=== PATIENT | female | born 1945 | race Caucasian/White ===

== ENCOUNTER → 2018-05-20 15:10 | Outpatient (CLI) | payer MEDICARE, OTHER, SELFPAY ==
--- NOTE | 2018-05-20 15:14 | BI_ITS ---
MAMMOGRAPHY - BILATERAL SCREENING REASON FOR EXAM: Female, 73 years old. Routine annual screening examination. PERTINENT HISTORY: Non-contributory. Remote left breast biopsy. TECHNIQUE: Digital bilateral breast jigar (3D mammographic acquisition) in the CC and MLO projections. 2-D mediolateral oblique (MLO) and craniocaudad (CC) views of both breasts were obtained. CAD: Full Field Digital Mammography with Computer Added Detection was performed. COMPARISON: No comparison mammograms available at this time. If any prior films become available, an addendum to this report can be generated. FINDINGS: Breast Composition: The breasts are heterogeneously dense, which may obscure small masses. There is a densely calcified 1.3 cm x 0.9 cm nodule in the deep retroareolar region of the left breast suggestive of a calcified fibroadenoma. No other significant abnormalities are identified. BI/SCREENING MAMM (CAD), BILAT IMPRESSION: Negative screening mammogram. Yearly followup mammogram recommended. (A) ASSESSMENT CATEGORY: BIRADS Category 2: Benign. A letter regarding these results will be sent to the patient by the facility within 30 days. Approximately 10% of breast cancers are not detected by mammography. A normal mammogram should not delay biopsy of a clinically suspicious abnormality. [id number] Electronically Signed: Fantasma Gentile MD at 8:11 EDT Tel [phone], Service support ,
--- NOTE | 2018-05-20 15:24 | BD_ITS ---
STUDY: DUAL ENERGY X-RAY ABSORPTIOMETRY / DXA REASON FOR EXAM: Female, 73 years old. Early menopause. Loss of height. History of compression fracture. TECHNIQUE: Bone Mineral Density (BMD) measurements of lumbar spine and bilateral hips were obtained. COMPARISON: None. FINDINGS: Lumbar Spine (L1-L4): g/cm2 (0.809) / T-score (-3.3) / Z-score (-1.6) Findings are suggestive of osteoporosis with a high fracture risk. Increased thoracic kyphosis. 50% loss of height of the L1 vertebrae. Left Femur Total: g/cm2 (0.823) / T-score (-1.5) / Z-score (0.1) Left Femoral Neck: g/cm2 (0.746) / T-score (-2.1) / Z-score (-0.4) Right Femur Total: g/cm2 (0.804) / T-score (-1.6) / Z-score (-0.1) Right Femoral Neck: g/cm2 (0.786) / T-score (-1.8) / Z-score (-0.1) BD/Dexa Bone Density Study IMPRESSION: The patient is considered osteoporotic as outlined below according to [employer] (WHO) criteria with a high fracture risk. Reference Information: The T-score is the number of standard deviations above or below the standard which is normal for young adults at their peak bone mineral density. The World Health Organization (WHO) interprets the T-scores as follows: Above -1 Normal bone density Between -1 and -2.5 Osteopenia Equal to / or below -2.5 Osteoporosis As a practical clinical guideline, osteopenia may be graded as follows: Mild -1 through -1.5 Moderate -1.6 through -2.0 Severe -2.1 through -2.4 The Z-score is the number of standard deviations above or below age-matched controls. A Z-score of less than -1.5 would be considered abnormal. References: 1. NIH Osteoporosis and Related Bone Diseases http://www.osteo.org 2. International Society for Clinical Densitometry http://www.iscd.org 3. National Osteoporosis Foundation http://www.nof.org Electronically Signed: Fantasma Gentile MD at 8:16 EDT Tel [phone], Service support ,
== END ==
PROVIDERS: Family Provider Family Medicine; PCP Family Medicine; Visit Provider Family Medicine
DX: Z12.31 Encounter for screening mammogram for malignant neoplasm of breast (principal); M81.0 Age-related osteoporosis without current pathological fracture
CPT/HCPCS: 77063; 77067; 77080

== ENCOUNTER → 2018-06-24 10:03 | Outpatient (CLI) | payer MEDICARE, OTHER, SELFPAY ==
[2018-06-24 12:04] LABS: Absolute Lymphocyte Count 1.04 X10^3/ul (0.83-4.51); Absolute Neutrophil Count 2.9 X10^3/uL (2.0-7.7); Basophil# 0.01 X10^3/uL; Basophil% 0.2 % (0-1); Eosinophil# 0.09 X10^3/uL; Eosinophils% 2.1 % (0-5); Hematocrit 39.5 % (37-47); Hemoglobin 12.9 g/dl (12.0-15.0); Lymphocyte # 1.04 X10^3/ul (4.0); Mean Corp Hgb Conc 32.7 g/gl (32-36); Mean Corpuscular Hgb 30.6 pg (27.0-32.0); Mean Corpuscular Volume 93.6 fL (81-99); Mean Platelet Vol. 8.8 fl (6.2-12.0); Monocyte# 0.28 X10^3/uL; Monocyte% 6.5 % (0-10); Platelet Count 211 K/mm3 (150-450); RBC Distribution Width CV 13.1 % (11.6-14.6); RBC Distribution Width SD 43.4 fl (35.1-43.9); Red Blood Count 4.22 M/mm3 (4.2-5.4); White Blood Count 4.3 K/mm3 (4.4-11.0)
[2018-06-24 12:09] LABS: POSITIVE COUNT NO; POSITIVE DIFFERENTIAL NO; POSITIVE MORPHOLOGY NO
[2018-06-24 12:34] LABS: AST(SGOT) 17 U/L (15-37); Alanine Aminotransfer ALT/SGPT 14 U/L (13-56); Albumin, Serum 3.6 g/dL (3.2-5.0); Alkaline Phosphatase 60 U/L (45-117); Anion Gap 8 (5-15); BUN 13 mg/dL (7-18); BUN/Creat Ratio 17.2 RATIO (10-20); Calcium,Total 8.6 mg/dL (8.5-10.1); Chloride 106 mmol/L (98-107); Creatinine, Serum 0.76 mg/dL (0.55-1.02); EST Glomerular Filtration Rate 80 mL/min (>60); Est Glom Filt Rate - Afr Amer 97 mL/min (>60); Globulin 3.5 g/dL (2.2-4.2); Glucose 89 mg/dL (74-106); Phosphorus 3.5 mg/dL (2.5-4.9); Potassium 3.7 mmol/L (3.5-5.1); Protein, Total 7.1 g/dL (6.4-8.2); Sodium Level 142 mmol/L (136-145); Thyroid Stim Hormone (TSH) 1.34 uIU/mL (0.358-3.74)
[2018-06-25 09:08] LABS: Vitamin B12 374 pg/mL (211-911)
[2018-06-28 11:09] LABS: Vitamin B1, Thiamine 140.4 nmol/L (66.5-200.0)
== END ==
LOC: MFPLAB 10:04 → MTRAD 10:27
PROVIDERS: Family Provider Family Medicine; PCP Family Medicine; Visit Provider Family Medicine
DX: R07.81 Pleurodynia (principal); M81.0 Age-related osteoporosis without current pathological fracture; E55.9 Vitamin D deficiency, unspecified; E53.9 Vitamin B deficiency, unspecified
CPT/HCPCS: 36415; 71110; 80053; 82306; 82607; 84100; 84425; 84443; 85025

== ENCOUNTER → 2018-08-26 16:58 | Outpatient (CLI) | payer MEDICARE, OTHER, SELFPAY | PROVIDERS: Family Provider Family Medicine; PCP Family Medicine; Referring Provider Obstetrics & Gynecology; Visit Provider Obstetrics & Gynecology | DX: R30.0 Dysuria (principal) | CPT/HCPCS: 87077; 87086; 87088 ==

== ENCOUNTER → 2018-09-28 10:36 | Outpatient (CLI) | payer MEDICARE, OTHER, SELFPAY ==
[2018-09-28 12:58] LABS: ALB/GLOB Ratio 1.2 RATIO (0.9-2.4); AST(SGOT) 16 U/L (15-37); Alanine Aminotransfer ALT/SGPT 15 U/L (13-56); Alkaline Phosphatase 63 U/L (45-117); Anion Gap 4 (5-15); BUN 17 mg/dL (7-18); BUN/Creat Ratio 20.3 RATIO (10-20); Calcium,Total 8.8 mg/dL (8.5-10.1); Chloride 105 mmol/L (98-107); Creatinine, Serum 0.84 mg/dL (0.55-1.02); EST Glomerular Filtration Rate 71 mL/min (>60); Est Glom Filt Rate - Afr Amer 86 mL/min (>60); Globulin 3.4 g/dL (2.2-4.2); Glucose 90 mg/dL (74-106); Phosphorus 3.3 mg/dL (2.5-4.9); Potassium 3.9 mmol/L (3.5-5.1); Protein, Total 7.4 g/dL (6.4-8.2); Sodium Level 140 mmol/L (136-145)
[2018-09-28 13:07] LABS: Vitamin B12 510 pg/mL (211-911); Vitamin D,25 Hydroxy 39.1 ng/mL (29.95-100.01)
--- OUTSIDE RECORDS SUMMARY | 2018-11-10 02:21 | XMS RPT_ITS ---
:1945 Author Organization [place] Support Name Relationship Address Phone PAMELA VIKKI Unavailable [id number] + [place] [address] THEODORE LEGER Unavailable [address] + [address] [place] [address] SYCRUNNRS Unavailable [address] + [address] [place] [address] VIKKI SANTIAGO Unavailable [address] + [place] [address] THEODORE LEGER Unavailable [address] + [address] [place] [address] SYCRUNNRS Unavailable [address] + [address] [place] [address] VIKKI SANTIAGO Unavailable [address] + [place] [address] THEODORE LEGER Unavailable [address] + [address] [place] [address] SYCRUNNRS Unavailable [address] + [address] [place] [address] VIKKI SANTIAGO Unavailable [address] + [place] [address] THEODORE LEGER Unavailable [address] + [address] [place] [address] SYCRUNNRS Unavailable [address] + [address] [place] [address] VIKKI SANTIAGO Unavailable [address] + [place] [address] THEODORE LEGER Unavailable [address] + [address] [place] [address] SYCRUNNRS Unavailable [address] + [address] [place] [address] VIKKI SANTIAGO Unavailable [address] + [place] [address] PROVIDER SERVICES Un[address] + [place] [address] VIKKI SANTIAGO Unavailable [address] + [place] [address] PROVIDER SERVICES Un[address] + [place] [address] VIKKI SANTIAGO Unavailable [address] + [place] [address] PROVIDER SERVICES Un[address] + [place] [address] PROVIDER SERVICES Unavailable [address] + [place] [address] VIKKI SANTIAGO Unavailable [address] + [place] [address] MALICK LEGER Unavailable [address] + [place] [address] PROVIDER SERVICES Un[address] + [place] [address] VIKKI SANTIAGO Unavailable [address] + [place], [place] [address]MALICK FINK Unavailable [address] + [place] [address] PROVIDER SERVICES Un[address] + [place] [address] VIKKI SANTIAGO Unavailable [address] + [place] [address] MALICK LEGER Unavailable [address] + [place] [address] PROVIDER SERVICES Un[address] + [place] [address] VIKKI SANTIAGO Unavailable [address] + [place], [place] [address]MALICK FINK Unavailable [address] + [place] [address] [address] + [place] [address] Care Team Providers Name Role Phone Kurt Garcia Attending Unavailable Schinner, Alfredo E Referring Unavailable Tasha, Pat Attending Unavailable Schinner, Alfredo E Referring Unavailable Schinner, Alfredo E Attending Unavailable Schinner, Alfredo E Referring Unavailable Schinner, Alfredo E Primary Care Unavailable Schinner, Alfredo E Attending Unavailable Schinner, Alfredo E Primary Care Unavailable Schinner, Alfredo E Referring Unavailable Marcanthony, Tiera Attending Unavailable Schinner, Alfredo E Referring Unavailable Marcanthony, Tiera Attending Unavailable Marcanthony, Tiera Referring Unavailable Schinner, Alfredo E Primary Care Unavailable Tasha, Pat Attending Unavailable Schinner, Alfredo E Referring Unavailable Schinner, Alfredo E Attending Unavailable Schinner, Alfredo E Primary Care Unavailable [place], Kurt Attending Unavailable Schinner, Alfredo E Referring Unavailable Jose, Kurt Attending Unavailable Schinner, Alfredo E Primary Care Unavailable Schinner, Alfredo E Referring Unavailable Tasha, Pat Attending Unavailable Schinner, Alfredo E Referring Unavailable Jose, Kurt Attending Unavailable PROBLEMS PROBLEMS DATE TYPE CONDITION / CODE ATTENDING STATUS SOURCE 10/14/2018 Unknown K64.9 - Kurt Garcia Active [facility] hemorrhoids [facility] Hospital K64.9(ICD-10) Repository 10/07/2018 Unknown Z12.11 - Encounter Kurt Garcia Active [place] for screening for Community malignant neoplasm Hospital colon / Repository Z12.11(ICD-10) 10/07/2018 Unknown K64.8 - Other Kurt Garcia Active [place] hemorrhoids / Community K64.8(ICD-10) Hospital Repository 08/26/2018 Unknown R30.0 - Dysuria / Marcanthony, Active [place] R30.0(ICD-10) [facility] Repository 06/30/2018 Unknown R07.81 - Alfredo Dodd Active [place] Pleurodynia / E Community R07.81(ICD-10) Hospital Repository 05/20/2018 Unknown M81.0 - Alfredo Dodd Active [place] Age-related [facility] osteoporosis Hospital without current Repository pathological fracture / M81.0(ICD-10) 05/20/2018 Unknown Z12.31 - Encounter Alfredo Dodd [facility] for screening [facility] mammogram for Hospital malignant neoplasm Repository of breast / Z12.31(ICD-10) PROCEDURES PROCEDURES No Procedure Records FoundRESULTS RESULTS MIXING 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 [place] [address] OFFICE VISIT Date of Service: 10/14/18 MR#: [id number] Acct: [id number] Name: CHEYANNE LEGER Rep #: [id number] : 1945 Provider: DARRIN Cordova Age/Sex: 73/F [place] [facility] [place] Signed Intake Vital Signs10/14/18 Body Mass Index (BMI) 23.3 10/14/18 Height 5 ft 1.75 in 10/14/18 Weight: 134 lb 8 oz 10/14/18 Body Mass Index (BMI) 24.7 10/14/18 Blood Pressure 114/68 Intake Visit Reasons: pessary, abn discharge Is patient in pain?: Yes Allergies Penicillins [PCN] Allergy (Verified 10/14/18 13:31) Hives Medications ibuprofen 200 mg tablet 200 mg PO TID-QID PRN 09/30/18 [History Confirmed 10/14/18] aspirin 81 mg tablet,delayed release 81 mg PO DAILY 10/14/18 [History Confirmed 10/14/18] cholecalciferol (vitamin D3) 1,000 unit capsule 3,000 unit PO DAILY cap 10/14/18 [History Confirmed 10/14/18] multivitamin tablet 1 tab PO DAILY 10/14/18 [History Confirmed 10/14/18] Is last menstrual period known: No Post menopausal: No Patient : No : No PFSH Medical History Hemorrhoids (Acute) Surgical History H/O tubal ligation (Acute) History of tonsillectomy (Acute) S/P colonoscopy (Acute 10/06/18) Family History Father Myocardial infarction Social History Smoking Status: Never smoker alcohol intake: never substance use type: does not use caffeine: Yes what type of physical activity do you participate in: walking do you feel safe at home: Yes additional social history: [place]- 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 Was in for maintenance of pessary on 10/11 and states started with increased green discharge yesterday. No odor,no discomfort. Pregancy History 2 Elective abortions Hx Para 2 Spontaneous abortions Past Pregnancies Del. DatName GA/WeeksOutcome Route Bt WeigInfant GLabor LgAnesthesDel LocaProviderFOB e ht en ia tn Unknown 1965 And y Unknown 1969 ie Exam External Female Exam: normal external appearance Other: Pessary removed. Small amount mucoid discharge. Pessary cleaned and given to patient. No vaginal lesions or excoriations noted. Assessment AND Plan Problems 1. Vaginal discharge N89.8 Plan Leave pessary out X 1 week Use trimosan gel every other night RTO 1 week Coding Level of Care Code Off vis,est,level 3 Diagnoses Vaginal discharge N89.8 10/14/18 1349 <Electronically signed by Pat DICKEY> Date Pat DICKEY Cosigner Signature: Date (if applicable) CC: SURGERY VISIT REPORT Observed: 10/12/2018 Status: F Source: [place] 10:00 AM [facility] REPOSITORY [facility] [address] [place] [address] [address] [place] [address] OFFICE VISIT Date of Service: 10/12/18 MR#: [id number] Acct: [id number] Name: CHEYANNE LEGER Rep #: [id number] : 1945 Provider: Kurt Garcia MD Age/Sex: 73/F Location: [facility] Status: Signed Intake Intake Visit Reasons: F/U C-SCOPE 10/06/18 AND TO DISCUSS Hemorrhoidectomy Chief Complaint: Pessary Check Event Coordinator Required: No Is patient in pain?: No Allergies Penicillins [PCN] Allergy (Verified 10/12/18 09:30) Hives Medications ibuprofen 200 mg tablet 200 mg PO TID-QID PRN 09/30/18 [History Confirmed 10/12/18] Subjective Details: Patient status post a colonoscopy completed on 10/06/2018. This was done for a screening colonoscopy. Patient was noted to have some nonbleeding internal and external hemorrhoids which were found during retroflexion. Hemorrhoids were moderate to medium in size was also noted to have multiple small mouth diverticuli found within the sigmoid and descending colon. I recommended that she have another colonoscopy in 10 years. Patient has not been complaining of any anal pain nor has she been complaining of any rectal Objective Details: Abdomen is soft and nontender Assessment AND Plan Problems 1. Hemorrhoids K64.9 Plan At the present time I do not think there is any surgical indications to do anything to these hemorrhoids. She has a completely normal rectal exam and unless she is having any bleeding I do not think that we need to give her any Anusol HC suppositories. She can follow-up with me on a as needed basis. It is recommended that she have a repeat colonoscopy in 10 years. Coding Level of Care Code Off vis,est,level 2 Diagnoses Hemorrhoids K64.9 10/12/18 1000 <Electronically signed by Kurt Garcia MD> Date Kurt Garcia MD Cosigner Signature: Date (if applicable) CC: Alfredo Dodd MD MIXING SUPERVISOR OFFICE VISIT Observed: 10/11/2018 Status: F Source: [place] REPORT 12:54 PM [facility] REPOSITORY [facility] [address] [place] [address] OFFICE VISIT Date of Service: 10/11/18 MR#: [id number] Acct: [id number] Name: CHEYANNE LEGER Rep #: [id number] : 1945 Provider: DARRIN Cordova Age/Sex: 73/F Location[place] [facility] Status: Signed Intake Vital Signs10/11/18 Body Mass Index (BMI) 23.3 10/11/18 Height 5 ft 1.75 in 10/11/18 Weight: 134 lb 10/11/18 Body Mass Index (BMI) 24.7 10/11/18 Blood Pressure 150/72 H Intake Visit Reasons: FOLLOW UP Chief Complaint: Pessary Check Event Coordinator Required: No Is patient in pain?: No Allergies Penicillins [PCN] Allergy (Verified 10/11/18 11:44) Hives Medications ibuprofen 200 mg tablet 200 mg PO TID-QID PRN 09/30/18 [History Confirmed 10/05/18] Is last menstrual period known: No Post menopausal: Yes Patient : No : No [facility] Medical History Hemorrhoids (Acute) Surgical History H/O tubal ligation (Acute) History of tonsillectomy (Acute) S/P colonoscopy (Acute) Family History Father Myocardial infarction Social History Smoking Status: Never smoker alcohol intake: never substance use type: does not use caffeine: Yes what type of physical activity do you participate in: walking do you feel safe at home: Yes additional social history: [place]- 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 Notes that sometimes feels like pessary drops down when urinating, having BM but never comes out. Feels occurs more frequently when uses trimosan gel. Denies bleeding, unusual discharge. Pregancy History 2 Elective abortions Hx Para 2 Spontaneous abortions Past Pregnancies Del. DatName GA/WeeksOutcome [facility] LocaProviderFOB e ht en ia tn Unknown 1965 And y Unknown 1969 ie Exam Const General: cooperative, no acute distress Nutritional Appearance: well nourished Orientation: oriented x3 Other: Ring pessary with support is well placed prior to removal. It was removed and cleaned and easily replaced with trimosan gel. NO excoriations or lesions noted. This pessary does fit well for patient. Assessment AND Plan Problems 1. Cystocele with rectocele N81.10; N81.6 size 2 ring with support placed 2. Pessary maintenance Z46.89 Plan May try just using trimosan gel once a week Call if pessary comes out or if discomfort, S AND S infection or bleeding occurs RTO 6 weeks Coding Level of Care Code Off vis,est,level 3 Diagnoses Cystocele with rectocele N81.10; N81.6 Pessary maintenance Z46.89 10/11/18 1254 <Electronically signed by Pat DICKEY> Date Pat DICKEY Cosigner Signature: Date (if applicable) CC: OPERATIVE REPORT - Observed: 10/06/2018 Status: F Source: [place] ENDOSCOPY 10:28 AM [facility] REPOSITORY [facility] Medical Records Department [address] [facility] [place] [address] Operative Report - Endoscopy MR#: [id number] Acct: [id number] Name: CHEYANNE LEGER Rep #: [id number] : 1945 73 From: Kurt Garcia MD PCP: Alfredo Dodd MD Status: [place] [facility] [place] Patient Name: Cheyanne Leger Procedure Date: 10/06/2018 10:04 AM Date of : 1945 Age: 73 Procedure: Colonoscopy Indications: Screening for colorectal malignant neoplasm Providers: Kurt Garcia MD Referring MD: Alfredo Dodd Medicines: See the Anesthesia note for documentation of the administered medications Patient Profile: This is a 73 year old female. Refer to note in patient chart for documentation of history and physical. Last Colonoscopy: none. The patient's first colonoscopy is today. Complications: No immediate complications. Procedure: Pre-Anesthesia Assessment: - Prior to the procedure, a History and Physical was performed, and patient medications and allergies were reviewed. The patient's tolerance of previous anesthesia was also reviewed. The risks and benefits of the procedure and the sedation options and risks were discussed with the patient. All questions were answered, and informed consent was obtained. Prior Anticoagulants: The patient has taken no previous anticoagulant or antiplatelet agents. ASA Grade Assessment: II - A patient with mild systemic disease. After reviewing the risks and benefits, the patient was deemed in satisfactory condition to undergo the procedure. After I obtained informed consent, the scope was passed under direct vision. Throughout the procedure, the patient's blood pressure, pulse, and oxygen saturations were monitored continuously. The Colonoscope was introduced through the anus and advanced to the cecum, identified by appendiceal orifice and ileocecal valve. The colonoscopy was performed without difficulty. The patient tolerated the procedure well. The quality of the bowel preparation was good. Scope In: 10:13:39 AM Scope Withdrawal Time 0 hours 6 minutes 9 seconds Scope Out: 10:24:36 AM Total Procedure Duration Time 0 hours 10 minutes 57 seconds Findings: Non-bleeding external and internal hemorrhoids were found during retroflexion. The hemorrhoids were moderate and medium-sized. Multiple small-mouthed diverticula were found in the sigmoid colon and descending colon. The exam was otherwise without abnormality. Impression: - Non-bleeding external and internal hemorrhoids. - Diverticulosis in the sigmoid colon and in the descending colon. - The examination was otherwise normal. - No specimens collected. Recommendation: - Discharge patient to home. - Resume previous diet. - Continue present medications. - Repeat colonoscopy in 10 years for screening purposes. - Return to my office in 1 week. Procedure Code(s): --- Professional --- G0121, Colorectal cancer screening; colonoscopy on individual not meeting criteria for high risk Diagnosis Code(s): --- Professional --- Z12.11, Encounter for screening for malignant neoplasm of colon K64.8, Other hemorrhoids K57.30, Diverticulosis of large intestine without perforation or abscess without bleeding CPT copyright 2017 [employer]. All rights reserved. The codes documented in this report are preliminary and upon frame sample and pattern supervisor review may be revised to meet current compliance requirements. MD Kurt Chaudhry MD 10/06/2018 10:28:22 AM This report has been signed electronically. Number of Addenda: 0 Note Initiated On: 10/06/2018 10:04 AM 10/06/18 1028 Date Kurt Garcia MD Cosigner Signature: Date (if indicated) CC: Kurt Garcia MD; Alfredo Dodd MD Date Dictated: 10/06/18 1004 Date Transcribed: Apparatus Engineering Technologist: JOSEPH Signed SURGERY VISIT REPORT Observed: 09/30/2018 Status: F Source: [place] 12:57 PM [facility] REPOSITORY [facility] [address] [place] [address] [address] [place] [address] OFFICE VISIT Date of Service: 09/30/18 MR#: [id number] Acct: [id number] Name: CHEYANNE LEGER Rep #: [id number] : 1945 Provider: Kurt Garcia MD Age/Sex: 73/F Location: [facility] Status: Signed Intake Vital Signs09/30/18 Height 5 ft 1 in 09/30/18 Weight: 135 lb Intake Visit Reasons: SCREENING C-SCOPE AND HEMORRHOID Chief Complaint: pessary check Event Coordinator Required: No Is patient in pain?: No Allergies Penicillins [PCN] Allergy (Verified 09/30/18 10:49) Hives Medications ibuprofen 200 mg tablet 200 mg PO TID-QID PRN 09/30/18 [History Confirmed 09/30/18] PFSH Medical History Hemorrhoids (Acute) Surgical History H/O tubal ligation (Acute) History of tonsillectomy (Acute) Family History Father Myocardial infarction Social History Smoking Status: Never smoker alcohol intake: never substance use type: does not use caffeine: Yes what type of physical activity do you participate in: walking do you feel safe at home: Yes additional social history: [place]- 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 Patient states that she has a small hemorrhoid that seems to have gotten a little larger over the years. She has not noticed any bleeding from it. She can never recall having any anal surgery in the past. She has never had a screening colonoscopy. She does notice that it makes wiping a little difficult at times. And occasionally she thinks that she may have some leakage. ROS General General: Yes weight change; no appetite, fatigue, colon cancer, breast cancer or weakness HEENT HEENT: No difficulty swallowing, eye injury, eye surgery, swollen glands or hoarseness Endo Endocrine: No thyroid disease, diabetes mellitus, thyroid cancer, Hair loss, heat intolerance or cold intolerance Skin Skin: No rash or changing moles Breast Breast: No left breast lump, right breast lump, nipple discharge, breast pain, abnormal mammogram, abnormal US or breast enlargement Musc Musculoskeletal: Yes back problems; no arthritis, rheumatoid arthritis, gout or joint pain Cardio Cardiovascular: No murmur, pacemaker, heart disease, atrial fibrillation, high blood pressure, heart attack, heart stent, palpitations, shortness of breat with exertion or chest pain Psych Psychiatric: No depression, anxiety or hearing voices Resp Respiratory: No shortness of breath, No sleep apnea, No cough, No COPD, No asthma, No emphysema, No wheezing Gastro Gastrointestinal: No abdominal pain, No nausea or vomiting, No diarrhea, No constipation, No blood in stool, No acid reflux, Yes hemorrhoids, No ulcers, No gallbladder problem, No black,tarry stools Jabari Hematologic: No blood thinners, No blood disorders, No bleeding, No anemia, No blood clots Neuro Neurologic: No system reviewed and no additional complaints, except as docu, No as per HPI, No abnormal walking, No abnormal hearing, No abnormal movements, No abnormal speech, No behavioral changes, No burning sensations, No confusion, No seizure-like activity, No unsteadiness, No dizziness, No localized weakness, No frequent falls, No headache(s), No lack of coordination, No loss of vision, No memory loss, No numbness, No other visual disturbances, No radiating pain, No restless legs, No sensory deficit, No fainting, No tingling, No tremor(s), No weakness, No other Exam Const General: well developed, no acute distress, well hydrated Orientation: oriented to person, oriented to place, oriented to time [facility] Head: normocephalic, atraumatic Ears: external ears normal Mouth: moist mucous membranes Eyes Sclera: sclerae normal Pupils: normal by confrontation Neck Neck: no lymphadenopathy noted Neck mass: No Thyroid: symmetrical, thyroid normal Chest Chest palpation AND inspection: normal inspection of the chest Breast Palpation: No nipple discharge Resp Effort AND Inspection: normal respiratory effort Auscultation: clear to auscultation bilaterally Percussion: percussion normal Cardio Rate: regular rate Rhythm: regular rhythm Heart Sounds: no murmurs GI Palpation: soft, no masses, no hepatosplenomegaly, nontender Rectal Exam: other Other: Patient has a small internal and external hemorrhoidal component on the right lateral aspect. The rest of the anus appears normal. There is no signs of cellulitis. There is no signs of masses. She has normal tone. Extrem General: no clubbing, cyanosis or edema, normal to inspection Assessment AND Plan Problems 1. Screening for colon cancer Z12.11 Plan I have discussed the above with the patient. I have offered the patient colonoscopy for evaluation. I have explained the risks/benefits of the procedure and described the procedure. I have discussed the risks with the patient, including but not limited to: infection, bleeding, perforation of the GI tract requiring emergency surgery, inability to complete the procedure, injury to any internal organs, complications of anesthesia, etc. - the patient understands and agrees to proceed. I have answered all the patient's questions to the patient's satisfaction and the patient has no further questions. The patient has been given instructions for the colon cleansing preparation. I do not think there is anything we need to do for this hemorrhoid. It is entirely without symptomatology. I do not think any surgical intervention is needed at this time. She however does need to have a screening colonoscopy. Coding Level of Care Code Off vis,new,level 3 Diagnoses Screening for colon cancer Z12.11 09/30/18 1257 <Electronically signed by Kurt Garcia MD> Date Kurt Garcia MD Cosigner Signature: Date (if applicable) CC: Alfredo Dodd MD COMPREHENSIVE METABOLIC Collected: 09/28/2018 Status: F Source: [place] PROFIL 10:37 AM [facility] REPOSITORY TYPE CODE TESTS RESULT OUT OF RANGE REFERENCE UNITS LAB L501.0100 74-106 mg/dL Normal GLU 90 Result Comment: Please note revised GLUCOSE reference range effective 2017. LAB L501.1000 7-18 mg/dL Normal BUN 17 LAB L501.1100 0.55-1.02 mg/dL Normal CREAT,SERUM 0.84 Result Comment: The validity of the calculated GFR AND GFRAA in patients over 70 years has not been determined. Clinical correlation is essential. LAB L501.1110 >60 mL/min Normal EST GFR 71 Result Comment: Non- GFR Calc LAB L501.1115 >60 mL/min Normal EST GFR - AA 86 Result Comment: GFR Calc LAB L501.1300 10-20 RATIO High BUN/CRE 20.3 LAB L501.1500 6.4-8.2 g/dL T Normal PROT 7.4 LAB L501.1800 3.2-5.0 g/dL Normal ALB 4.0 LAB L501.1950 2.2-4.2 g/dL Normal GLOB 3.4 LAB L501.2000 0.9-2.4 RATIO Normal A/G 1.2 LAB L501.2200 8.5-10.1 mg/dL CA Normal 8.8 LAB L501.4100 15-37 U/L Normal AST 16 LAB L501.4305 45-117 U/L Normal ALK P 63 LAB L501.4405 13-56 U/L Normal ALT 15 LAB L501.4600 0.20-1.00 mg/dL T Normal BILI 0.70 LAB L501.5300 136-145 mmol/L NA Normal 140 LAB L501.5600 3.5-5.1 mmol/L K Normal 3.9 LAB L501.5900 98-107 mmol/L CL Normal 105 LAB L501.6100 21.0-32.0 mmol/L Normal CO2 31.0 LAB L501.6200 5-15 Low GAP 4 Performed By: #### L500.4050, L501.2300, L503.0105, L506.1000 #### [facility] [address] [place], [address] PHOSPHORUS Collected: 09/28/2018 Status: F Source: [place] 10:37 AM [facility] REPOSITORY TYPE CODE TESTS RESULT OUT OF RANGE REFERENCE UNITS LAB L501.2300 2.5-4.9 mg/dL Normal PHOS 3.3 Performed By: #### L500.4050, L501.2300, L503.0105, L506.1000 #### [facility] [address] [place], [address] VITAMIN B12 Collected: 09/28/2018 Status: F Source: [place] 10:37 AM [facility] REPOSITORY TYPE CODE TESTS RESULT OUT OF RANGE REFERENCE UNITS LAB L503.0105 211-911 pg/mL Normal Vitamin B12 510 Performed By: #### L500.4050, L501.2300, L503.0105, L506.1000 #### [facility] [address] [place], [address] VITAMIN D,25 HYDROXY Collected: 09/28/2018 Status: F Source: [place] 10:37 AM [facility] REPOSITORY TYPE CODE TESTS RESULT OUT OF RANGE REFERENCE UNITS LAB L506.1000 29.95-100.01 ng/mL Normal Vitamin D 39.1 25-OH Result Comment: Vitamin D 25(OH) Status Range Deficiency <20 ng/mL (50nmol/L) Insuffciency 20 - 30 ng/mL (50 - 75 nmol/L) Sufficiency 30 - 100 ng/mL (75 - 250 nmol/L) Toxicity >100 ng/mL (>250 nmol/L) Performed By: #### L500.4050, L501.2300, L503.0105, L506.1000 #### [facility] [address] [place], [address] MIXING SUPERVISOR OFFICE VISIT Observed: 09/10/2018 Status: F Source: [place] REPORT 10:21 AM [facility] REPOSITORY [facility] [address] [place] [address] OFFICE VISIT Date of Service: 09/10/18 MR#: [id number] Acct: [id number] Name: CHEYANNE LEGER Rep #: [id number] : 1945 Provider: DARRIN Cordova Age/Sex: 73/F [place] [facility] Signed Intake Vital Signs09/10/18 Height 5 ft 1.5 in 09/10/18 Weight: 136 lb 09/10/18 Body Mass Index (BMI) 25.2 09/10/18 Blood Pressure 150/80 H Intake Visit Reasons: can't find pessary Chief Complaint: pessary check Event Coordinator Required: No Is patient in pain?: No Allergies Penicillins [PCN] Allergy (Verified 09/10/18 10:04) Hives Medications nitrofurantoin monohydrate/macrocrystals 100 mg capsule 100 mg PO BID #14 cap 09/01/18 [Rx Confirmed 09/10/18] Is last menstrual period known: No Post menopausal: Yes Patient : No : No PFSH Surgical History H/O tubal ligation (Acute) History of tonsillectomy (Acute) Family History Father Myocardial infarction Social History Smoking Status: Never smoker alcohol intake: never substance use type: does not use caffeine: Yes what type of physical activity do you participate in: walking do you feel safe at home: Yes additional social history: Malick- 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 Unsure if ok to push up on it. Had initial pessary placed 08/[address] Quiros. Is otherwise doing well with it. No difficulty with bowel or bladder habits, no increased discharge, bleeding or discomfort Pregancy History 2 Elective abortions Hx Para 2 Spontaneous abortions Past Pregnancies Del. DatName GA/WeeksOutcome Route [facility] Lalita Rausch LgAnesthesDel LocaProviderFOB e ht en ia tn Unknown 1965 And y Unknown 1969 ie Exam Other: Upon exam the ring pessary with support is properly placed. Discussed may move down in vagina with valsalva and ok to push back up. Normal discharge noted. Assessment AND Plan Problems 1. Cystocele with rectocele N81.10; N81.6 size 2 ring with support placed 2. Vaginal pessary in situ Z92.89 Plan Reassured normal placement Has pessary check in 2 weeks Coding Level of Care Code Off vis,est,level 3 Diagnoses Cystocele with rectocele N81.10; N81.6 Vaginal pessary in situ Z92.89 09/10/18 1021 <Electronically signed by Pat DICKEY> Date Pat DICKEY Cosigner Signature: Date (if applicable) CC: MIXING SUPERVISOR OFFICE VISIT Observed: 08/29/2018 Status: F Source: [place] REPORT 2:05 AM [facility] [address] [place] [address] OFFICE VISIT Date of Service: 08/26/18 MR#: [id number] Acct: [id number] Name: ARSENCHEYANNE S Rep #: [id number] : 1945 Provider: Tiera Quiros MD Age/Sex: 73/F [place] [facility] [place]: Signed Intake Vital Signs08/26/18 Height 5 ft 2 in 08/26/18 Weight: 135 lb 8 oz 08/26/18 Body Mass Index (BMI) 24.7 08/26/18 Blood Pressure 138/86 H Intake Visit Reasons: BLADDER DROPPED? Chief Complaint: Bladder issues Event Coordinator Required: No Is patient in pain?: No Allergies Penicillins [PCN] Allergy (Verified 08/26/18 12:42) Hives Medications No Known/Unobtainable [No Known Home Medications] 01/14/16 [History Confirmed 01/14/16] Is last menstrual period known: No Post menopausal: Yes Patient : No : No PFSH Surgical History H/O tubal ligation (Acute) History of tonsillectomy (Acute) Family History Father Myocardial infarction Social History Smoking Status: Never smoker alcohol intake: never substance use type: does not use caffeine: Yes what type of physical activity do you participate in: walking do you feel safe at home: Yes additional social history: [place]ick- 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 she has noticed a vaginal bulge after doing some heavy lifting she felt a pop. she is having some vaginal pressure. she denies any urinary complaints. she feels pressure with lifting but denies any utis, she has some hemorrhoids , denies any splinting. Female Reproductive History Questions: Sexually active: No ( has prostate cancer) Pregancy History 2 Elective abortions Hx Para 2 Spontaneous abortions Past Pregnancies Del. DatName GA/WeeksOutcome Route [facility] LocaProviderFOB e ht en tn Unknown 1965 And y Unknown 1969 Jermaine ie ROS Const Constitutional: Reports system reviewed and no additional complaints, except as docu GI GI: Reports system reviewed and no additional complaints, except as docu : Reports as per HPI Exam Const General: cooperative, healthy appearing, comfortable, no acute distress, well developed Nutritional Appearance: average body habitus Orientation: alert HENMT Head: normal to inspection, normocephalic Neck Neck: normal visual inspection, trachea midline Thyroid: thyroid normal Resp Effort AND Inspection: normal respiratory effort GI Inspection: normal to inspection, non-distended Palpation: soft, no hepatosplenomegaly General: bladder normal to palpation External Female Exam: normal external appearance, normal appearance of the urethra Urethra: normal appearance of the urethra, normal palpation, no discharge Speculum Exam - Vagina: normal appearance of the vagina, normal vaginal discharge Speculum Exam - Cervix: normal appearance of the cervix, nontender Bimanual Exam- Vagina AND Uterus: bladder normal to palpation, No cervical tenderness, normal bimanual exam, uterine size normal, uterine shape normal, uterine mobility normal, uterine consistency normal, normal cervical palpation, uterus non-tender Bimanual Exam- Adnexa, other: pelvic support normal, rectocele, cystocele Pelvic Support: normal, rectocele, cystocele Skin General: no rashes or lesions noted Assessment AND Plan Problems 1. Cystocele with rectocele N81.10; N81.6 size 2 ring with support placed Plan peassary fitted and placed. fu in 4 weeks Orders Orders: Coding Level of Care Code Off vis,new,level 3 Diagnoses Cystocele with rectocele N81.10; N81.6 08/29/18 0205 <Electronically signed by Tiera Quiros MD> Date Tiera Quiros MD Cosigner Signature: Date (if applicable) CC: Observed: 08/26/2018 Status: F Source: [place] CULTURE, URINE 5:47 PM [facility] REPOSITORY Urine Culture Below infection level. ORGANISM 1: Streptococcus group B Thompson Count <1000 Performed By: #### M100.0650 #### [facility] [address] [place] [address]. [place], [address] RIBS BILAT 3V NO Observed: 06/24/2018 Status: F Source: [place] CXR 10:29 AM [facility] REPOSITORY [facility] Imaging Services [address] [place] [address] Ribs Bilat 3V No CXR MR#: [id number] Acct: [id number] Name: CHEYANNE LEGER Rep #: [id number] : 1945 F 73 From: Jessica Noonan MD PCP: Alfredo Dodd MD Status: REG CLI Study: Ribs Bilat 3V No CXR Date of Exam: 06/24/18 Exam# [id number] Ordering Dr: Alfredo Dodd MD STUDY: X-RAY - BILATERAL RIBS WITH CHEST REASON FOR EXAM: Female, 73 years old. Right anterior rib pain status post vacuuming TECHNIQUE - RIBS: 2 view(s) of the ribs. TECHNIQUE - CHEST: Single frontal view of the chest. COMPARISON: Report of MRI thoracic spine 02/12/2016. FINDINGS - RIBS : There is severe demineralization of the osseous structures which diminishes the diagnostic sensitivity of this examination, however there is no visualized rib fracture. FINDINGS - CHEST: There is hyperinflation of the lungs consistent with chronic obstructive lung disease (COPD). There is no demonstrated pleural abnormality. Normal size heart. Normal mediastinum and ricardo. Normal visualized pulmonary arteries. There is atherosclerotic calcification of the aortic arch with tortuosity. Severe generalized osteoporosis, loss of vertebral body height T12 and L1. Vertebra plana involving T9 vertebral body. There is no demonstrated abnormality of the visualized soft tissue structures of the upper abdomen. RAD/Ribs Bilat 3V No CXR IMPRESSION: RIBS: Severe generalized osteoporosis. No acute displaced rib fractures noted. CHEST: COPD, multilevel compression injuries of the thoracic spine, previously reported on thoracic spine 01/14 2016 involving the L1 and T12 vertebral body. The vertebra plana deformity of T9 was previously not mentioned. Electronically Signed: Jessica Noonan MD at 4:52 EDT , Service support , CC: Alfredo Dodd MD Apparatus Engineering Technologist: Signed CBC W/DIFF, AUTOMATED Collected: 06/24/2018 Status: F Source: [place] 10:04 AM [facility] REPOSITORY Order Comment: Order Date: 04/23/18 Order Info: 0184-1 - CBCD TYPE CODE TESTS RESULT OUT OF RANGE REFERENCE UNITS LAB L100.1000 4.4-11.0 K/mm3 Low WBC 4.3 LAB L100.1200 4.2-5.4 M/mm3 Normal RBC 4.22 LAB L100.1300 12.0-15.0 g/dl Normal HGB 12.9 LAB L100.1400 37-47 % Normal HCT 39.5 LAB L100.1500 81-99 fL Normal MCV 93.6 LAB L100.1600 27.0-32.0 pg Normal MCH 30.6 LAB L100.1700 32-36 g/gl Normal MCHC 32.7 LAB L100.1810 11.6-14.6 % Normal RDW CV 13.1 LAB L100.1820 35.1-43.9 fl Normal RDW SD 43.4 LAB L100.1900 150-450 K/mm3 Normal PLT 211 LAB L100.2000 6.2-12.0 fl Normal MPV 8.8 LAB L100.2100 47-70 % Normal NEUT% 67.0 LAB L100.2200 19-41 % Normal LY% 24.0 LAB L100.2300 0-10 % Normal MONO% 6.5 LAB L100.2400 0-5 % Normal EO% 2.1 LAB L100.2500 0-1 % Normal BASO% 0.2 LAB L100.2550 0.0-0.9 % Normal IM GRAN % 0.200 Result Comment: IG% - Immature Granulocytes (promyelocytes, myelocytes and metamyelocytes) > 1% indicates that a LEFT SHIFT is Present. LAB L100.2620 2.0-7.7 X10 3/uL Normal Absolute Neut 2.9 LAB L100.2720 0.83-4.51 X10 3/ul Normal Absolute Lymph 1.04 Performed By: #### L100.0100, L500.4050, L501.2300, L501.9520, L503.0105, L506.1000 #### [facility] [address] [place], [address] COMPREHENSIVE METABOLIC Collected: 06/24/2018 Status: F Source: [place] BARNEY 10:04 AM [facility] REPOSITORY Order Comment: Order Date: 04/23/18 Order Info: 0786-1 - CMP Order Info: 2777-1 - PHOS Order Info: 3016-3 - TSH Comments: B6 #5855 PLASMA FROZEN PFL TYPE CODE TESTS RESULT OUT OF RANGE REFERENCE UNITS LAB L501.0100 74-106 mg/dL Normal GLU 89 Result Comment: Please note revised GLUCOSE reference range effective 2017. LAB L501.1000 7-18 mg/dL Normal BUN 13 LAB L501.1100 0.55-1.02 mg/dL Normal CREAT,SERUM 0.76 Result Comment: The validity of the calculated GFR AND GFRAA in patients over 70 years has not been determined. Clinical correlation is essential. LAB L501.1110 >60 mL/min Normal EST GFR 80 Result Comment: Non- GFR Calc LAB L501.1115 >60 mL/min Normal EST GFR - AA 97 Result Comment: GFR Calc LAB L501.1300 10-20 RATIO Normal BUN/CRE 17.2 LAB L501.1500 6.4-8.2 g/dL T Normal PROT 7.1 LAB L501.1800 3.2-5.0 g/dL Normal ALB 3.6 LAB L501.1950 2.2-4.2 g/dL Normal GLOB 3.5 LAB L501.2000 0.9-2.4 RATIO Normal A/G 1.0 LAB L501.2200 8.5-10.1 mg/dL CA Normal 8.6 LAB L501.4100 15-37 U/L Normal AST 17 LAB L501.4305 45-117 U/L Normal ALK P 60 LAB L501.4405 13-56 U/L Normal ALT 14 LAB L501.4600 0.20-1.00 mg/dL T Normal BILI 1.00 LAB L501.5300 136-145 mmol/L NA Normal 142 LAB L501.5600 3.5-5.1 mmol/L K Normal 3.7 LAB L501.5900 98-107 mmol/L CL Normal 106 LAB L501.6100 21.0-32.0 mmol/L Normal CO2 28.0 LAB L501.6200 5-15 Normal GAP 8 Performed By: #### L100.0100, L500.4050, L501.2300, L501.9520, L503.0105, L506.1000 #### [facility] [address] [place], [place], [address] PHOSPHORUS Collected: 06/24/2018 Status: F Source: [place] 10:04 AM [facility] REPOSITORY Order Comment: Order Date: 04/23/18 Order Info: 0786-1 - CMP Order Info: [id number] - PHOS Order Info: 3016-3 - TSH Comments: B6 #4655 PLASMA FROZEN PFL TYPE CODE TESTS RESULT OUT OF RANGE REFERENCE UNITS LAB L501.2300 2.5-4.9 mg/dL Normal PHOS 3.5 Performed By: #### L100.0100, L500.4050, L501.2300, L501.9520, L503.0105, L506.1000 #### [facility] [place], [place], [address] THYROID STIM HORMONE Collected: 06/24/2018 Status: F Source: [place] (TSH) 10:04 AM [facility] REPOSITORY Order Comment: Order Date: 04/23/18 Order Info: [id number] - CMP Order Info: 2777- - PHOS Order Info: 3016-3 - TSH Comments: B6 #4655 PLASMA FROZEN PFL TYPE CODE TESTS RESULT OUT OF RANGE REFERENCE UNITS LAB L501.9520 0.358-3.74 uIU/mL Normal TSH 1.34 Performed By: #### L100.0100, L500.4050, L501.2300, L501.9520, L503.0105, L506.1000 #### [facility] [address] [place], [place], [address] VITAMIN B12 Collected: 06/24/2018 Status: F Source: [place] 10:04 AM [facility] REPOSITORY Order Comment: Order Date: 04/23/18 Order Info: 2132-9 - B12 Order Info: 09851-6 - VITD25 TYPE CODE TESTS RESULT OUT OF RANGE REFERENCE UNITS LAB L503.0105 211-911 pg/mL Normal Vitamin B12 374 Performed By: #### L100.0100, L500.4050, L501.2300, L501.9520, L503.0105, L506.1000 #### [facility] [address] [place], [place], [address] VITAMIN D,25 HYDROXY Collected: 06/24/2018 Status: F Source: [place] 10:04 AM [facility] REPOSITORY Order Comment: Order Date: 04/23/18 Order Info: 2132-9 - B12 Order Info: 07647-6 - VITD25 TYPE CODE TESTS RESULT OUT OF REFERENCE UNITS RANGE LAB L506.1000 29.95-100.01 ng/mL Low Vitamin D 29.0 25-OH Result Comment: Vitamin D 25(OH) Status Range Deficiency <20 ng/mL (50nmol/L) Insuffciency 20 - 30 ng/mL (50 - 75 nmol/L) Sufficiency 30 - 100 ng/mL (75 - 250 nmol/L) Toxicity >100 ng/mL (>250 nmol/L) Performed By: #### L100.0100, L500.4050, L501.2300, L501.9520, L503.0105, L506.1000 #### [facility] [address] [place], [address] VITAMIN B1, THIAMINE Collected: 06/24/2018 Status: F Source: [place] 10:04 [facility] [place] Order Comment: Comments: B6 #4655 PLASMA FROZEN PFL TYPE CODE TESTS RESULT OUT OF RANGE REFERENCE UNITS LAB L3300.8000 66.5-200.0 nmol/L Normal VIT B1 140.4 Result Comment: This test was developed and its performance characteristics determined by [facility]. It has not been cleared or approved by the Food and Drug Administration. Performed at: [address] [id number] Pattern Illustrator: Gaudencio Bennett MD, Phone: [phone] Performed By: #### L3300.8000 #### [facility] (refer to report for specific site) refer to report for address and phone number MISCELLANEOUS LAB Collected: 06/24/2018 Status: F Source: [place] PROCEDURE 10:04 AM [facility] REPOSITORY Order Comment: Comments: B6 #4655 PLASMA FROZEN PFL Test(s) Ordered: B6 #4655 PLASMA FROZEN PFL TYPE CODE TESTS RESULT OUT OF RANGE REFERENCE UNITS LAB L801.1541 Normal [facility] [place] Result Comment: TEST RESULT UNITS REFERENCE INTERVAL Vitamin B6, Plasma 7.3 ug/L 2.0 - 32.8 Disclaimer: This test was developed and its performance characteristics determined by [facility]. It has not been cleared or approved by the U.S. Food and Drug Administration. TESTING PERFORMED AT [facility]. ORIGINAL REPORT ON FILE IN LAB CONTAINS ADDITIONAL TEST SITE INFORMATION. Performed By: #### L801.1541 #### [facility] [address] [facility] [place], [address] SCREENING MAMM (CAD), Observed: 05/20/2018 Status: F Source: [facility] 3:15 PM [facility] REPOSITORY [facility] Imaging Services [address] [place] [address] SCREENING MAMM (CAD), [facility] MR#: [id number] Acct: [id number] Name: CHYEANNE LEGER Rep #: [id number] : 1945 F 73 From: Fantasma Gentile MD PCP: Alfredo Dodd MD Status: [facility] CL Study: SCREENING MAMM (CAD), BILAT Date of Exam: 05/20/18 Exam# [id number] Ordering Dr: Alfredo Dodd MD MAMMOGRAPHY - BILATERAL SCREENING REASON FOR EXAM: Female, 73 years old. Routine annual screening examination. PERTINENT HISTORY: Non-contributory. Remote left breast biopsy. TECHNIQUE: Digital bilateral breast jigar (3D mammographic acquisition) in the CC and MLO projections. 2-D mediolateral oblique (MLO) and craniocaudad (CC) views of both breasts were obtained. CAD: Full Field Digital Mammography with Computer Added Detection was performed. COMPARISON: No comparison mammograms available at this time. If any prior films become available, an addendum to this report can be generated. FINDINGS: Breast Composition: The breasts are heterogeneously dense, which may obscure small masses. There is a densely calcified 1.3 cm x 0.9 cm nodule in the deep retroareolar region of the left breast suggestive of a calcified fibroadenoma. No other significant abnormalities are identified. BI/SCREENING MAMM (CAD), BILAT IMPRESSION: Negative screening mammogram. Yearly followup mammogram recommended. (A) ASSESSMENT CATEGORY: BIRADS Category 2: Benign. A letter regarding these results will be sent to the patient by the facility within 30 days. Approximately 10% of breast cancers are not detected by mammography. A normal mammogram should not delay biopsy of a clinically suspicious abnormality. [id number] Electronically Signed: Fantasma Gentile MD at 8:11 EDT Tel [phone], Service support , CC: Alfredo Dodd MD Apparatus Engineering Technologist: Signed DEXA BONE DENSITY Observed: 05/20/2018 Status: F Source: [place] STUDY 3:15 PM [facility] REPOSITORY [facility] Imaging Services [address] [place] [address] Dexa Bone Density Study MR#: [id number] Acct: [id number] Name: CHEYANNE LEGER Rep #: [id number] : 1945 F 73 From: Fantasma Gentile MD PCP: Alfredo Dodd MD Status: [facility] Study: Dexa Bone Density Study Date of Exam: 05/20/18 Exam# [id number] Ordering Dr: Alfredo Dodd MD STUDY: DUAL ENERGY X-RAY ABSORPTIOMETRY / DXA REASON FOR EXAM: Female, 73 years old. Early menopause. Loss of height. History of compression fracture. TECHNIQUE: Bone Mineral Density (BMD) measurements of lumbar spine and bilateral hips were obtained. COMPARISON: None. FINDINGS: Lumbar Spine (L1-L4): g/cm2 (0.809) / T-score (-3.3) / Z-score (-1.6) Findings are suggestive of osteoporosis with a high fracture risk. Increased thoracic kyphosis. 50% loss of height of the L1 vertebrae. Left Femur Total: g/cm2 (0.823) / T-score (-1.5) / Z- score (0.1) Left Femoral Neck: g/cm2 (0.746) / T-score (-2.1) / Z- score (-0.4) Right Femur Total: g/cm2 (0.804) / T-score (-1.6) / Z- score (-0.1) Right Femoral Neck: g/cm2 (0.786) / T-score (-1.8) / Z-score (-0.1) BD/Dexa Bone Density Study IMPRESSION: The patient is considered osteoporotic as outlined below according to World [employer] Organization (WHO) criteria with a high fracture risk. Reference Information: The T-score is the number of standard deviations above or below the standard which is normal for young adults at their peak bone mineral density. The World Health Organization (WHO) interprets the T-scores as follows: Above -1 Normal bone density Between -1 and -2.5 Osteopenia Equal to / or below -2.5 Osteoporosis As a practical clinical guideline, osteopenia may be graded as follows: Mild -1 through -1.5 Moderate -1.6 through -2.0 Severe -2.1 through -2.4 The Z-score is the number of standard deviations above or below age-matched controls. A Z-score of less than -1.5 would be considered abnormal. References: 1. NIH Osteoporosis and Related Bone Diseases http://www.osteo.org 2. International Society for Clinical Densitometry http://www.iscd.org 3. National Osteoporosis Foundation http://www.nof.org Electronically Signed: Fantasma Gentile MD at 8:16 EDT Tel [phone], Service support , CC: Alfredo Dodd MD Apparatus Engineering Technologist: Signed ALLERGIES ALLERGIES DATE TYPE / CODE NAME / CODE REACTION SEVERITY SOURCE 10/14/2018 Drug Penicillins/ Hives Unknown [facility] Allergy/4160 [id number]([facility] [address]24(SNOMED XNORM) Repository CT) ENCOUNTERS ENCOUNTERS ADMIT/DISCHARGE ACCOUNT ADMITTING ENCOUNTER LOCATION SOURCE NUMBER CLASS 10/14/2018/ [id number] Ambulatory BMSBuilding:B [place] 8 7 [facility] Repository 10/12/2018/ [id number] Ambulatory BMSBuilding:B [place] 8 1 [facility] Repository 10/11/2018/ [id number] Ambulatory BMSBuilding:B [place] 8 9 [facility] Repository 10/06/2018/ [id number] [place]ulatory [place] [facility] ing:ENRoom: Repository AC11 10/06/2018/ [id number] Ambulatory BMSBuilding:B [place] 8 9 [place].[facility] Repository 09/30/2018/ [id number] Ambulatory BMSBuilding:B [place] 8 9 [facility] Repository 09/28/2018 [id number] [place] [facility] ing:MFPLAB Repository 09/10/2018/ [id number] Ambulatory BMSBuilding:B [place] 5 [facility] Repository 08/26/2018 [id number] Ambulatory [place] [facility] ing:LABSPEC Repository 08/26/2018/ [id number] Ambulatory BMSBuilding:B [place] 8 3 [facility] Repository 06/24/2018 [id number] [place] [facility] ing:MTRAD Repository 05/20/2018 [id number] [place] [facility] ing:OPBD Repository PAYERS PAYERS ENCOUNTER GUARANTOR PAYER SUBSCRIBER SOURCE 10/14/2018 CHEYANNE S Primary CHEYANNE S [place] [id number] CR Insurance:MEDICARE STANTONDOB: Community [address] Number: Repository [address]Oth: 330 [id number] [phone] () Date:2018-10-13 10/14/2018 Secondary CHEYANNE S [place] Insurance:AARPPolicy STANTONDOB: Community Number: [id number] [id number] Repository Date:1937-13-71[address], [place] [address]TQ: 10/14/2018 Tertiary NOT GIVENUNK [place] Insurance:SELF PAY [facility] Number: Effective Repository Date:2018-10-14 10/12/2018 CHEYANNE S Primary CHEYANNE S [place] [id number] CR Insurance:MEDICARE STANTONDOB: Community [address] [facility] [id number] Number: Repository [address]Eiw: 330 [id number] [phone] () Date:2018-10-07 10/12/2018 Secondary CHEYANNE S [place] Insurance:AARPPolicy STANTONDOB: Community Number: [id number] [id number] Repository Date:2233-96-[address], [place] [address]IW: 10/12/2018 Tertiary NOT GIVENUNK [place] Insurance:SELF PAY [facility] Number: Effective Repository Date:2018-10-08 10/11/2018 CHEYANNE S Primary CHEYANNE S [place] [id number] CR Insurance:MEDICARE STANTONDOB: Community [address] [facility] [id number] Number: Repository [address]Rfz: 330 [id number] [phone] () Date:2018-09-14 10/11/2018 Secondary CHEYANNE S [place] Insurance:AARPPolicy ARSENDOB: Community Number: [id number] [id number] Repository Date:6056-13-31[address], [place] [address]UC: 10/11/2018 Tertiary NOT GIVENUNK [place] Insurance:SELF PAY [facility] Effective Repository Date:2018-10-07 10/06/2018 CHEYANNE S Primary CHEYANNE S Alek [id number] CR Insurance:MEDICARE STANTONDOB: Community 6PO BOX PART A [facility] [id number] Number: Repository [id number]: 330 [id number] [phone] () Date:2018-09-30 10/06/2018 Secondary CHEYANNE S [place] Insurance:AARPPolicy ARSENDOB: Community Number: [id number] Hospital [id number] Repository Date:9158-35-01[address], [place] [address]DL: 10/06/2018 Tertiary NOT GIVENUNK Alek Insurance:SELF PAY [facility] Number: Effective Repository Date:2018-09-30 10/06/2018 CHEYANNE S Primary CHEYANNE S Alek [id number] CR Insurance:MEDICARE STANTONDOB: Community 6PO BOX PART A [facility] [id number] Number: Repository [id number]: 330 [id number] [phone] () Date:2018-09-30 10/06/2018 Secondary CHEYANNE S [place] Insurance:AARPPolicy ARSENDOB: Community Number: [id number] Hospital [id number] Repository Date:4195-29-94WT [facility] [place], [place] [address]RY: 10/06/2018 Tertiary NOT GIVENUNK [place] Insurance:SELF PAY [facility] Number: Effective Repository Date:2018-10-06 09/30/2018 CHEYANNE S Primary CHEYANNE S [place] [id number] CR Insurance:MEDICARE STANTONDOB: Community 6PO BOX PART A [facility] [id number] Number: Repository [id number]: 330 [id number] [phone] () Date:2018-09-28 09/30/2018 Secondary CHEYANNE S [place] Insurance:AARPPolicy STANTONDOB: Community Number: [id number] Hospital [id number] Repository Date:2508-46-24CV [facility] [id number], [place] [address]ON: 09/30/2018 Tertiary NOT GIVENUNK Alek Insurance:SELF PAY [facility] Number: Effective Repository Date:2018-09-28 09/28/2018 CHEYANNE S Primary CHEYANNE S Alek [id number] CR Insurance:MEDICARE MORRISDOB: Community 6PO BOX PART A [facility] [id number] Number: Repository [id number]: 330 [id number] [phone] () Date:2018-09-28 09/28/2018 Secondary CHEYANNE S [place] Insurance:AARPPolicy ARSENDOB: Community Number: [id number] Hospital [id number] Repository Date:1649-88-59PW [facility] [address], [place] [address]NO: 09/28/2018 Tertiary NOT GIVENUNK Alek Insurance:SELF PAY [facility] Number: Effective Repository Date:2018-09-28 09/10/2018 CHEYANNE S Primary CHEYANNE S Alek [id number] CR Insurance:MEDICARE STANTONDOB: Community 6PO BOX PART A [place] [id number] Number: Repository [id number]: [phone] [id number] [phone] () Date:2018-09-08 09/10/2018 Secondary CHEYANNE S Ale[place] Insurance:AARPPolicy BECCAB: Community Number: [id number] Hospital [id number] Repository Date:0655-09-48[address]TSVZNS, [place] [address]FY: 09/10/2018 Tertiary NOT GIVENUNK [place] Insurance:SELF PAY [facility] Number: Effective Repository Date:2018-09-10 08/26/2018 CHEYANNE S Primary CHEYANNE S [place] [id number] CR Insurance:MEDICARE STANTONDOB: Community 6PO BOX PART A [facility] [id number] Number: Repository [id number]: 330 [id number] [phone] () Date:2018-08-26 08/26/2018 Secondary CHEYANNE S [place] Insurance:AARWesley HUDSONB: Community Number: [id number] Hospital [id number] Repository Date:7542-10-84KV [address], [place] [address]PN: 08/26/2018 Tertiary NOT GIVENUNK [place] Insurance:SELF PAY [facility] Number: Effective Repository Date:2018-08-26 08/26/2018 CHEYANNE S Primary CHEYANNE S [place] [id number] CR Insurance:MEDICARE STANTONDOB: Community [address] PART A [facility] [id number] Number: Repository [address]Rwr: 330 [id number] [phone] () Date:2018-08-03 08/26/2018 Secondary CHEYANNE S [place] Insurance:AARPPolicy ARSENDOB: Community Number: [id number] Hospital [id number] Repository Date:9085-12-69ID [address]XWSLVU, [place] [address]PT: 08/26/2018 Tertiary NOT GIVENUNK [place] Insurance:SELF PAY [facility] Number: Effective Repository Date:2018-08-26 06/24/2018 CHEYANNE S Primary CHEYANNE S [place] [id number] CR Insurance:MEDICARE [facility] Community 6PO BOX PART A [facility] [id number] Number: Repository [id number]: [phone] [id number] [phone] () Date:2018-06-24 06/24/2018 Secondary CHEYANNE S [place] Insurance:ELYSEPPraymond HUDSONB: Community Number: [id number] Hospital [id number] Repository Date:3848-45-25GM [facility] [address]DHQHZHW, [place] [address]AX: 06/24/2018 Tertiary NOT GIVENUNK [place] Insurance:SELF PAY [facility] Number: Effective Repository Date:2018-06-24 05/20/2018 Cheyanne S Primary Cheyanne S Alek [id number] CR [facility] 6PO BOX PART A [facility] [id number] Number: Repository [id number]: 330 [id number] [phone] () Date:2018-04-23 05/20/2018 Secondary Cheyanne S [place] Insurance:Vimal HudsonB: Community Number: [id number] Hospital [id number] Repository Date:3868-08-17JQ [facility] [id number], [place] [address]FR: 05/20/2018 Tertiary NOT GIVENUNK [place] Insurance:SELF PAY [facility] Number: Effective Repository Date:2018-04-23
== END ==
PROVIDERS: Family Provider Family Medicine; PCP Family Medicine; Visit Provider Family Medicine
DX: M81.0 Age-related osteoporosis without current pathological fracture (principal); E53.9 Vitamin B deficiency, unspecified; E55.9 Vitamin D deficiency, unspecified
CPT/HCPCS: 36415; 80053; 82306; 82607; 84100

== ENCOUNTER 2018-10-06 08:21 | Day surgery (SDC) | payer MEDICARE, OTHER, SELFPAY ==
[2018-09-30 10:48] VITALS: BMI 25.4
[2018-10-06] VITALS (7 sets, daily range): BP systolic 92–120; BP diastolic 52–78; PULSE 68–85; RESP 16; TEMP 36.3–37.4; O2SAT 98–100; BMI 23.3
--- NOTE | 2018-10-06 10:28 | OP.ENDO_ITS ---
Patient Name: Cheyanne Harrington Procedure Date: 10/06/2018 10:04 AM Date of : 1945 Age: 73 Procedure: Colonoscopy Indications: Screening for colorectal malignant neoplasm Providers: Kurt Garcia MD Referring MD: Alfredo Dodd Medicines: See the Anesthesia note for documentation of the administered medications Patient Profile: This is a 73 year old female. Refer to note in patient chart for documentation of history and physical. Last Colonoscopy: none. The patient's first colonoscopy is today. Complications: No immediate complications. Procedure: Pre-Anesthesia Assessment: - Prior to the procedure, a History and Physical was performed, and patient medications and allergies were reviewed. The patient's tolerance of previous anesthesia was also reviewed. The risks and benefits of the procedure and the sedation options and risks were discussed with the patient. All questions were answered, and informed consent was obtained. Prior Anticoagulants: The patient has taken no previous anticoagulant or antiplatelet agents. ASA Grade Assessment: II - A patient with mild systemic disease. After reviewing the risks and benefits, the patient was deemed in satisfactory condition to undergo the procedure. After I obtained informed consent, the scope was passed under direct vision. Throughout the procedure, the patient's blood pressure, pulse, and oxygen saturations were monitored continuously. The Colonoscope was introduced through the anus and advanced to the cecum, identified by appendiceal orifice and ileocecal valve. The colonoscopy was performed without difficulty. The patient tolerated the procedure well. The quality of the bowel preparation was good. Scope In: 10:13:39 AM Scope Withdrawal Time 0 hours 6 minutes 9 seconds Scope Out: 10:24:36 AM Total Procedure Duration Time 0 hours 10 minutes 57 seconds Findings: Non-bleeding external and internal hemorrhoids were found during retroflexion. The hemorrhoids were moderate and medium-sized. Multiple small-mouthed diverticula were found in the sigmoid colon and descending colon. The exam was otherwise without abnormality. Impression: - Non-bleeding external and internal hemorrhoids. - Diverticulosis in the sigmoid colon and in the descending colon. - The examination was otherwise normal. - No specimens collected. Recommendation: - Discharge patient to home. - Resume previous diet. - Continue present medications. - Repeat colonoscopy in 10 years for screening purposes. - Return to my office in 1 week. Procedure Code(s): --- Professional --- G0121, Colorectal cancer screening; colonoscopy on individual not meeting criteria for high risk Diagnosis Code(s): --- Professional --- Z12.11, Encounter for screening for malignant neoplasm of colon K64.8, Other hemorrhoids K57.30, Diverticulosis of large intestine without perforation or abscess without bleeding CPT copyright 2017 [employer]. All rights reserved. The codes documented in this report are preliminary and upon psychology tech review may be revised to meet current compliance requirements. MD Kurt Chaudhry MD 10/06/2018 10:28:22 AM This report has been signed electronically. Number of Addenda: 0 Note Initiated On: 10/06/2018 10:04 AM
== END 2018-10-06 11:31 | disposition home or self-care (01) ==
LOC: EN 08:21 → AC 08:22
PROVIDERS: Family Provider Family Medicine; PCP Family Medicine; Referring Provider Family Medicine; Visit Provider Surgery
PROC: 0DJD8ZZ Inspection of Lower Intestinal Tract, Via Natural or Artificial Opening Endoscopic (ICD-10-PCS; CPT 45378; principal; 2018-10-06 09:55)
DX: Z12.11 Encounter for screening for malignant neoplasm of colon (principal); K57.30 Diverticulosis of large intestine without perforation or abscess without bleeding; K64.8 Other hemorrhoids; K64.4 Residual hemorrhoidal skin tags; Z78.0 Asymptomatic menopausal state
CPT/HCPCS: G0121; J7120

== ENCOUNTER → 2019-05-13 16:18 | Outpatient (CLI) | payer MEDICARE, OTHER, SELFPAY ==
[2019-05-13 08:59] VITALS: BMI 25.2
== END ==
PROVIDERS: Family Provider Family Medicine; PCP Family Medicine; Referring Provider Obstetrics & Gynecology; Visit Provider Obstetrics & Gynecology
DX: R30.0 Dysuria (principal)
CPT/HCPCS: 87086

== ENCOUNTER → 2019-08-30 15:22 | Outpatient (CLI) | payer MEDICARE, OTHER, SELFPAY ==
[2019-08-30 13:05] VITALS: BMI 25.4
== END ==
PROVIDERS: Family Provider Family Medicine; PCP Family Medicine; Visit Provider Nurse Practitioner Women's Health
DX: N89.8 Other specified noninflammatory disorders of vagina (principal)
CPT/HCPCS: 87070; 87205

== ENCOUNTER → 2019-10-20 13:07 | Outpatient (CLI) | payer MEDICARE, OTHER, SELFPAY ==
[2019-10-20 10:18] VITALS: BMI 24.5
== END ==
PROVIDERS: Family Provider Family Medicine; PCP Family Medicine; Referring Provider Nurse Practitioner Women's Health; Visit Provider Nurse Practitioner Women's Health
DX: Z46.89 Encounter for fitting and adjustment of other specified devices (principal)
CPT/HCPCS: 87070; 87205

== ENCOUNTER → 2019-11-11 11:36 | Outpatient (CLI) | payer MEDICARE, OTHER, SELFPAY ==
[2019-10-20 10:18] VITALS: BMI 24.5
--- NOTE | 2019-11-11 11:39 | BI_ITS ---
MAMMOGRAPHY - BILATERAL SCREENING REASON FOR EXAM: Female, 74 years old. Routine annual screening examination. PERTINENT HISTORY: Non-contributory. TECHNIQUE: Digital bilateral breast betsy (3D mammographic acquisition) in the CC and MLO projections. 2-D mediolateral oblique (MLO) and craniocaudad (CC) views of both breasts were obtained. CAD: Full Field Digital Mammography with Computer Added Detection was performed. COMPARISON: Comparison is made with prior study dated May 20, 2018. FINDINGS: Breast Composition: The breasts are heterogeneously dense, which may obscure small masses. There are no dominant masses or suspicious calcifications. Stable 1.3 cm x 1 cm ossified nodule in the upper lateral portion of the left breast in keeping with calcified fibroadenoma. No other significant abnormalities are identified. There has been no significant change since the prior study. BI/SCREEN MAMM (CAD) W/BETSY BILAT IMPRESSION: Stable bilateral screening mammogram. Yearly follow-up mammogram recommended. (A) ASSESSMENT CATEGORY: BIRADS Category 2: Benign. A letter regarding these results will be sent to the patient by the facility within 30 days. Approximately 10% of breast cancers are not detected by mammography. A normal mammogram should not delay biopsy of a clinically suspicious abnormality. [id number] Electronically Signed: Fantasma Gentile, at 12:44 EST , Service support ,
== END ==
PROVIDERS: Family Provider Family Medicine; PCP Family Medicine; Referring Provider Nurse Practitioner Women's Health; Visit Provider Nurse Practitioner Women's Health
DX: Z12.31 Encounter for screening mammogram for malignant neoplasm of breast (principal)
CPT/HCPCS: 77063; 77067

== ENCOUNTER → 2019-12-21 09:39 | Outpatient (CLI) | payer MEDICARE, OTHER, SELFPAY ==
[2019-10-20 10:18] VITALS: BMI 24.5
--- NOTE | 2019-12-21 09:43 | MRI_ITS ---
STUDY: MRI BRAIN WITHOUT CONTRAST REASON FOR EXAM: Female, 74 years old. Ataxia, memory dysfunction, headaches TECHNIQUE: Standardized multiplanar fat and water weighted pulse sequences were obtained. COMPARISON: None. FINDINGS: Brain parenchyma is intact without focal lesions, mass effect, extra parenchymal fluid collections, hydrocephalus or herniation. There are minor age-related white matter gliotic foci. Major vascular flow structures are intact. Craniocervical junction is unremarkable. MRI/Brain without Contrast IMPRESSION: 1. Unremarkable brain MRI. Electronically Signed: Lilliana Holder, at 11:27 EST Tel , Service support ,
== END ==
PROVIDERS: PCP Family Medicine; Referring Provider Psychiatry & Neurology Neurology; Visit Provider Psychiatry & Neurology Neurology
DX: R27.0 Ataxia, unspecified (principal)
CPT/HCPCS: 70551

== ENCOUNTER 2021-03-31 14:50 | Emergency (ER) | payer MEDICARE, OTHER, SELFPAY ==
[2020-10-30 10:38] VITALS: BMI 24.0
[2021-03-31 14:51] VITALS: BP 172/104; PULSE 74; RESP 15; TEMP 36.7; BMI 22.5
--- NOTE | 2021-03-31 15:15 | RAD_ITS ---
STUDY: X-RAY - THORACIC SPINE REASON FOR EXAM: Female, 76 years old. back pain TECHNIQUE: 3 view(s) of the thoracic spine were obtained. COMPARISON: 01/14/2016 FINDINGS: There is an increase in the normal thoracic kyphosis. There is no substantial scoliosis. There is demineralization of the thoracic spine with endplate spondylosis. There is multilevel disc space narrowing of the thoracic spine. Mild T12 compression deformity is stable. L1 compression deformity is described on lumbar spine x-ray report. Mild T7 compression deformity is new and moderate T9 compression fracture is also new since 2016. The soft tissue structures are unremarkable. RAD/Thoracic Spine 2 Views IMPRESSION: 1. T7 and T9 compression fractures, new since 2015. 2. Stable T12 mild compression deformity. 3. Osteopenia with multilevel degenerative disc disease and spondylosis. Electronically Signed: Elgin Infante MD (Brooks) at 16:10 EDT , Service support ,
--- NOTE | 2021-03-31 15:15 | RAD_ITS ---
STUDY: X-RAY - LUMBAR SPINE REASON FOR EXAM: Female, 76 years old. back pain TECHNIQUE: 3 view(s) of the lumbar spine were obtained. COMPARISON: 01/14/2016 FINDINGS: Normal lumbar lordosis. There is no substantial scoliosis. There is a normal alignment of the vertebrae. There is diffuse demineralization with multi-level endplate spondylosis. There is multi-level degenerative disc disease with multi-level disc space narrowing. Increased compression deformity of L1 since 2015 with similar mild compression of T12. Moderate multilevel facet arthropathy particularly in the lower lumbar levels. T9 compression fracture described on thoracic spine x-ray. There is no demonstrated spondylolysis of the pars interarticulares. Atherosclerosis of the abdominal aorta. RAD/Lumbar Spine 2 or 3 Views IMPRESSION: 1. Mild increased compression deformity of L1 since 2015. 2. Stable T12 mild compression deformity. 3. Multilevel degenerative disc disease and facet arthropathy. Electronically Signed: Elgin Infante MD (Brooks) at 16:08 EDT , Service support ,
--- NOTE | 2021-03-31 15:16 | ED.VIS.BACK ---
HPI History of Present Illness Chief Complaint: Back Narrative Narrative: 76-year-old female presenting with back pain. She states that this started on Thursday. On Thursday she states she was lifting things at home. She notes that she did not have any acute onset pain at that time. She states the pain is gradually built over the last 2 days. She describes it as her upper and mid back. Patient has history of compression fractures in the past several years ago. She states that she only did physical therapy for this. The symptoms eventually resolved. She is concerned for new compression fracture. She denies any paresthesias. She has pain rotation of her body as well as when she stands and sits. [facility] Medical History (Updated 03/31/21 @ 16:[address] Selvin Pan, DO) Hemorrhoids History of compression fracture of vertebral column Home Medications ibuprofen 200 mg tablet 200 mg PO TID-QID PRN 09/30/18 [History Last Taken Unknown] aspirin 81 mg tablet,delayed release 81 mg PO DAILY 10/14/18 [History Last Taken Unknown] cholecalciferol (vitamin D3) 25 mcg (1,000 unit) capsule 3,000 unit PO DAILY cap 10/14/18 [History Last Taken Unknown] multivitamin 1 tab PO DAILY 10/14/18 [History Last Taken Unknown] estradiol See Rx Instructions VAGINAL .COMPLEX #42.5 g 12/07/18 [Rx Last Taken Unknown] triamcinolone acetonide 0.5 % topical cream 1 applic TOPICAL BID 7 Days #15 g 08/30/19 [Rx Last Taken Unknown] calcium carbonate 500 mg calcium (1,250 mg) tablet 500 mg PO DAILY 10/20/19 [History Last Taken Unknown] oxyquinoline 0.025 %-sodium lauryl sulfate 0.01 % vaginal gel See Rx Instructions VAGINAL .COMPLEX #113.4 g 10/20/19 [Rx Last Taken Unknown] hydrocodone-acetaminophen 1 tab PO Q6H PRN PRN 3 Days #12 tablet 03/31/21 [Rx Last Taken Unknown] Allergy/AdvReac Type Severity Reaction Status Date / Time Penicillins [PCN] Allergy Hives Verified 03/31/21 14:51 Family History Father Myocardial infarction Surgical History H/O tubal ligation History of tonsillectomy S/P colonoscopy (~10/06/18) Social History Smoking Status: Never smoker alcohol intake: never substance use type: does not use caffeine: Yes what type of physical activity do you participate in: walking do you feel safe at home: Yes additional social history: [place]- 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 ROS ROS ED Constitutional Constitutional ED: Denies fever(s) or subjective Eyes Eyes: Denies blurry vision or change in vision ENT ENT ED: Denies ear pain or rhinorrhea Cardiovascular Cardiovascular: Denies chest pain or palpitations Respiratory/Chest Respiratory/Chest: Denies dyspnea or sputum Gastrointestinal Gastrointestinal: Denies abdominal pain, nausea or vomiting Genitourinary Genitourinary ED: Denies dysuria, hematuria or urinary frequency Musculoskeletal Musculoskeletal: Reports back pain; Denies myalgias Integumentary Denies abscess or rash Neurologic Neurologic: Denies headache(s), paresthesias or weakness Psychiatric Psychiatric: Denies anxiety or depression EXAM Physical Exam Const Vital Signs: 03/31/21 14:51 Temperature 98.0 F Temperature Source Temporal Pulse Rate 74 Respiratory Rate 15 Blood Pressure 172/104 H Blood Pressure Mean 126 Positive well nourished General Appearance ED: NAD HEENT Reports moist mucous membranes Negative for trauma Eyes PERRL and EOMs intact bilaterally Resp normal respiratory effort and clear to auscultation bilaterally Cardio regular rate and regular rhythm Back/Spine General Back: Negative for CVA tenderness Thoracic Spine / Upper Back: thoracic spinal tenderness Lumbar Spine / Lower Back: lumbar spinal tenderness Extremity normal to inspection General Extremety ED: Negative for edema or tenderness General Extremity: Negative for edema Neuro oriented x3 Sensorium / Orientation: alert Psych mental status grossly normal Skin no rashes or lesions noted and no wounds MDM MDM MDM Narrative Medical decision making narrative: Patient presenting with multilevel back pain. She has history of compression fractures. She is given Timblin for pain as she states she has tolerated this in the past. X-ray of the lumbar spine shows compression deformities of L1 and T12 on my interpretation. Radiology does agree and also states that T12 compression deformity is stable and has been seen previously. On the thoracic spine x-ray as interpreted by myself there is a T7 and T9 compression fracture and radiology does agree. Patient will given a prescription for Timblin for pain. I did make a disc for her to take to her spinal specialist. Patient discharged in stable condition. Impression: 1. Compression fracture T7 2. Compression fracture T9 3. Compression fracture L1 4. Stable old compression fracture T12 Radiography Diagnostic Testing: Radiology Impression Lumbar Spine X-Ray 03/31/21 15:15 IMPRESSION: 1. Mild increased compression deformity of L1 since 2015. 2. Stable T12 mild compression deformity. 3. Multilevel degenerative disc disease and facet arthropathy. Electronically Signed: Elgin Infante MD (Brooks) at 16:08 EDT , Service support , Thoracic Spine X-Ray 03/31/21 15:15 IMPRESSION: 1. T7 and T9 compression fractures, new since 2015. 2. Stable T12 mild compression deformity. 3. Osteopenia with multilevel degenerative disc disease and spondylosis. Electronically Signed: Elgin Infante MD (Brooks) at 16:10 EDT , Service support , Discharge Plan Triage Chief Complaint: Back ED Provider: Selvin Pan Dx/Rx/DC Orders Instructions: Back Fracture (Compression Fracture) Prescriptions: New hydrocodone-acetaminophen 5-325 mg tablet 1 tab PO Q6H PRN PRN (Reason: Pain) 3 Days Qty: 12 RF: 0 No Action ibuprofen 200 mg tablet 200 mg PO TID-QID PRN (Reason: Pain) RF: 0 aspirin [Adult Aspirin Regimen] 81 mg tablet,delayed release (DR/EC) 81 mg PO DAILY RF: 0 cholecalciferol (vitamin D3) 1,000 unit capsule 1,000 unit capsule 3,000 unit PO DAILY RF: 0 multivitamin tablet tablet 1 tab PO DAILY RF: 0 estradiol [Estrace] 0.01 % (0.1 mg/gram) cream See Rx Instructions Vaginal .COMPLEX Qty: 42.5 RF: 2 calcium carbonate [Calcium 500] 500 mg calcium (1,250 mg) tablet 500 mg PO DAILY RF: 0 Trimo-Carrillo Jelly 0.025-0.01 % gel See Rx Instructions vaginal .COMPLEX Qty: 113.4 RF: 3 triamcinolone acetonide 0.5 % cream 1 applic topical BID 7 Days Qty: 15 RF: 2 Primary Care Provider: Alfredo Dodd Referrals: Alfredo Dodd MD [Primary Care Provider] - Disposition Disposition: Home, self care
[2021-03-31] MEDS: HYDROcodone Bitartrate/Apap 5/325 Tablet PO (15:38)
[2021-03-31 16:31] VITALS: BP 165/98; PULSE 67; RESP 16; TEMP 35.5
== END 2021-03-31 16:32 | disposition home or self-care (01) ==
PROVIDERS: Emergency Provider Student in an Organized Health Care Education/Training Program; PCP Family Medicine
DX: M48.54XA Collapsed vertebra, not elsewhere classified, thoracic region, initial encounter for fracture (principal); M48.56XA Collapsed vertebra, not elsewhere classified, lumbar region, initial encounter for fracture; M51.36 Other intervertebral disc degeneration, lumbar region; M46.96 Unspecified inflammatory spondylopathy, lumbar region
CPT/HCPCS: 72070; 72100; 99283

== ENCOUNTER → 2021-04-17 16:40 | Outpatient (CLI) | payer MEDICARE, OTHER, SELFPAY ==
[2021-03-31 14:51] VITALS: BMI 22.5
--- NOTE | 2021-04-17 16:59 | MRI_ITS ---
STUDY: MRI THORACIC SPINE WITHOUT CONTRAST REASON FOR EXAM: Female, 76 years old. AGE RELATED OSTEOPOROSIS WITH CURRENT PATHOLOGICAL FX TECHNIQUE: Standardized fat and water weighted pulse sequences were obtained in the sagittal and axial planes. COMPARISON: 02/12/2016 FINDINGS: Normal kyphosis of the thoracic spine. There is no substantial scoliosis. Acute moderate compression fracture of the T7 vertebral body with 2 mm retropulsion of the posterior cortex into the spinal canal producing mild spinal stenosis. No cord compression. Chronic severe compression fracture of the T9 vertebral body with 2 mm retropulsion in the spinal canal producing mild spinal stenosis but no cord compression. Chronic mild wedge compression fracture of T12 and chronic moderate wedge compression fracture of L1 with no retropulsion into the spinal canal. T1-2, T2-3, T3-4, T4-5, T5-6, T6-7, T7-8, T8-9, T9-10, T10-11, T11-12: Normal endplates. Normal disc hydration, heights and morphology of the corresponding intervertebral discs. Normal central canal and intervertebral neural foramina at the corresponding levels. Normal visualized thoracic cord. Normal conus medullaris that terminates at the L1.. The soft tissue structures are unremarkable. MRI/Spine Thoracic (Routine) IMPRESSION: 1. Acute moderate compression fracture of T7 with 2 mm retropulsion into the spinal canal producing mild spinal stenosis but no cord compression. 2. Chronic severe compression fracture of T9 with 2 mm retropulsion in the spinal canal producing mild spinal stenosis but no cord compression. 3. Chronic mild compression fracture of T12 and chronic moderate compression fracture of L1 without retropulsion into the spinal canal. Electronically Signed: Chaim Ulrich MD at 19:07 EDT Tel , Service support ,
--- NOTE | 2021-04-17 17:00 | MRI_ITS ---
STUDY: MRI LUMBAR SPINE WITHOUT CONTRAST REASON FOR EXAM: Female, 76 years old. AGE RELATED OSTEOPOROSIS WITH CURRENT PATHOLOGICAL FX TECHNIQUE: Standardized fat and water weighted pulse sequences were obtained in the sagittal and axial planes. COMPARISON: 02/12/2016 FINDINGS: T12-L1: Normal endplates. Normal disc height, hydration and morphology. Normal bilateral facet joints. Normal central canal and bilateral lateral recesses. Normal bilateral intervertebral neural foramina. Normal lumbar lordosis. There is no substantial scoliosis. Normal conus medullaris that terminates at the L1/L2. Chronic mild wedge compression fracture of T12 without retropulsion the spinal canal. Chronic moderate wedge compression fracture of L1 with 2 mm retropulsion of the superior endplate of spinal canal producing mild spinal stenosis but no cord compression. L1-2: Normal endplates. Normal disc height, hydration and morphology. Normal bilateral facet joints. Normal central canal and bilateral lateral recesses. Normal bilateral intervertebral neural foramina. L2-3: Mild bilateral facet hypertrophy and ligament flavum hypertrophy. Interval development of a mild bilobed disc protrusion produces mild spinal stenosis and mild bilateral neural foraminal stenosis. L3-4: Mild bilateral facet hypertrophy and ligament flavum hypertrophy. Interval development of a mild bilobed disc protrusion produces mild spinal stenosis and mild bilateral neural foraminal stenosis. L4-5: No change in the mild bilateral facet hypertrophy and moderate ligament flavum hypertrophy. Mild broad disc protrusion produces mild spinal stenosis and mild bilateral neural foraminal stenosis. L5-S1: No change in the mild broad disc protrusion produces mild spinal stenosis and mild bilateral neural foraminal stenosis. Normal visualized sacral ala. Normal visualized paraspinous soft tissue structures. MRI/Spine Lumbar (Routine) IMPRESSION: Worsening degenerative disc disease as described above. Electronically Signed: Chaim Ulrich MD at 19:10 EDT Tel , Service support ,
== END ==
PROVIDERS: PCP Family Medicine
DX: M80.00XD Age-related osteoporosis with current pathological fracture, unspecified site, subsequent encounter for fracture with routine healing (principal)
CPT/HCPCS: 72146; 72148

== ENCOUNTER → 2021-10-28 11:23 | Outpatient (CLI) | payer MEDICARE, OTHER, SELFPAY ==
--- NOTE | 2021-10-28 11:29 | BI_ITS ---
MAMMOGRAPHY - BILATERAL SCREENING 3-D TOMOSYNTHESIS REASON FOR EXAM: Female, 76 years old. screening for breast cancer PERTINENT HISTORY: No significant family history. TECHNIQUE: 2-D mammograms and 3-D Tomosynthesis of the breast (s) were performed. CAD was performed. COMPARISON: 11/11/2019 FINDINGS: The breast composition is Extermely dense tissue. Scattered benign calcifications are seen. No dense spiculated masses or suspicious microcalcifications are identified. No architectural distortion is identified. There is no skin thickening or retraction. There has been no significant change since the prior study. BI/SCRN MAMM (CAD)W/BETSY BILAT IMPRESSION: No mammographic signs of malignancy. Routine yearly mammograms recommended. ASSESSMENT CATEGORY: BIRADS Category 1: Negative. A letter regarding these results will be sent to the patient by the facility within 30 days. FOLLOW UP RECOMMENDATION: Yearly follow up mammogram recommended. (A) Approximately 10% of breast cancers are not detected by mammography. A normal mammogram should not delay biopsy of a clinically suspicious abnormality. Electronically Signed: Chaim Ulrich MD at 12:21 EST Tel , Service support ,
== END ==
PROVIDERS: PCP Family Medicine; Referring Provider Nurse Practitioner Women's Health; Visit Provider Nurse Practitioner Women's Health
DX: Z12.31 Encounter for screening mammogram for malignant neoplasm of breast (principal)
CPT/HCPCS: 77063; 77067

== ENCOUNTER 2022-04-17 20:03 | Observation (INO) | payer MEDICARE, OTHER, SELFPAY ==
[2022-04-17 20:04] VITALS: BP 158/84; PULSE 76; RESP 15; TEMP 37.1; O2SAT 96; BMI 25.2
--- NOTE | 2022-04-17 20:34 | EKG12_ITS ---
Test Reason : CP Blood Pressure : / mmHG Vent. Rate : 078 BPM Atrial Rate : 078 BPM P-R Int : 156 ms QRS Dur : 092 ms QT Int : 388 ms P-R-T Axes : 054 -29 036 degrees QTc Int : 442 ms Normal sinus rhythm Normal ECG Confirmed by GIANLUCA SIDHU, PARDEEP ([id number]), technical editor LEANDRO GREIR ([id number]) on 04/18/2022 9:04:05 AM Referred By: ELLEN Confirmed By:PARDEEP HOUGH MD
--- NOTE | 2022-04-17 20:41 | RAD_ITS ---
STUDY: X-RAY CHEST REASON FOR EXAM: Female, 77 years old. Chest pain. TECHNIQUE: Single AP portable view of the chest. COMPARISON: None. FINDINGS: The lungs are clear and expanded. There is no demonstrated pleural abnormality. Normal size heart. Normal mediastinum and ricardo. Normal visualized pulmonary arteries. There is atherosclerotic calcification of the aortic arch with tortuosity. There are diffuse degenerative changes of the visualized thoracic spine. There is degenerative osteoarthritis of the bilateral shoulders. There is no demonstrated abnormality of the visualized soft tissue structures of the upper abdomen. RAD/Chest 1 View (Portable) IMPRESSION: Degenerative changes, as described above. No demonstrated acute cardiopulmonary process. Electronically Signed: Bassem Isaac DO at 20:54 EDT ,
[2022-04-17 20:44] LABS: Absolute Lymphocyte Count 1.11 X10^3/uL (0.83-4.51); Absolute Neutrophil Count 4.8 X10^3/uL (2.0-7.7); Basophil# 0.02 X10^3/uL; Basophil% 0.3 % (0-1); Eosinophil# 0.05 X10^3/uL; Eosinophils% 0.8 % (0-5); Hemoglobin 13.2 g/dL (12.0-15.0); Lymphocyte # 1.11 X10^3/ul (0.83-4.51); Mean Corp Hgb Conc 32.2 g/dL (32-36); Mean Corpuscular Hgb 30.3 pg (27.0-32.0); Mean Platelet Vol. 8.2 fl (6.2-12.0); Monocyte# 0.54 X10^3/uL; Monocyte% 8.3 % (0-10); NRBC Flagged by Analyzer 0 % (0-5); Neutrophil # 4.79 X10^3/uL (2.7-7.7); Neutrophil % 73.3 % (47-70); Platelet Count 225 K/mm3 (150-450); RBC Distribution Width SD 44.6 fl (35.1-43.9); Red Blood Count 4.36 M/mm3 (4.2-5.4); White Blood Count 6.5 K/mm3 (4.4-11.0)
[2022-04-17] MEDS: Aspirin 81 MG TAB.CHEW 324 MG PO (20:45)
--- NOTE | 2022-04-17 20:53 | ED.VIS.CHEST ---
HPI History of Present Illness Chief Complaint: Chest Pain Informant: patient Onset/Context/Timing Onset: Today Activity at onset: sudden Timing: Intermittent Quality: Positive for Aching and Tightness Location: Substernal Current Severity: Mild Maximum Severity: Mild Worsened By: Nothing Relieved By: Nothing Associated Symptoms: Positive for Diaphoresis and Dyspnea; Negative for Nausea, Vomiting, Cough, Fever, Lightheadedness, Acid Reflux or Palpitations Narrative Narrative: 77-year-old female history of dementia and prior back surgery. She had chest pain 2 weeks ago will walking with the family member. She gets short of breath at that time. She says she done well since then but today she says she done well since then but today she is also midsternal chest pain. She fell in the bathtub earlier today and has had back and chest pain since then. No LOC. She is on no blood thinners. She is never had any cardiac history. They do not believe she is ever had a cardiac catheterization and cannot remember if she is ever had a stress test. She is never had a DVT or PE. No risk factors. No leg pain or swelling. No hemoptysis. Daughter also states that she lives about quarter mile away from the patient. The patient recently walked to her health and was significantly out of breath and had the rest. They do not believe she is ever had a cardiac catheterization or stress test. There is some family history of cardiac disease. The patient's never been a smoker. Prior Similar Symptoms: No Recent Illness/Hospitalization: No CVD Risk Factors: Negative for Hypertension, Diabetes, Hypercholesterolemia or Smoking PE Risk Factors: Negative for Recent Travel/Surgery, Recent Immobilization, Prior DVT or PE, Cancer or OCP + Smoking + >/=35 TAD Risk Factors: Negative for Marfan's Syndrome or Hypertension [facility] Medical History Alzheimer disease Hemorrhoids History of compression fracture of vertebral column Home Medications multivitamin (Daily Multi-Vitamin) 1 tab PO DAILY 10/14/18 [History Last Taken Unknown] calcium carbonate 500 mg calcium (1,250 mg) tablet (Calcium 500) 500 mg PO DAILY 10/20/19 [History Last Taken Unknown] oxyquinoline 0.025 %-sodium lauryl sulfate 0.01 % vaginal gel (Trimo-Carrillo Jelly) See Rx Instructions vaginal .COMPLEX #113.4 grams 06/24/21 [Rx Last Taken Unknown] memantine 28 mg capsule sprinkle,extended release 24hr 28 mg PO DAILY 04/17/22 [History Last Taken Unknown] Allergy/AdvReac Type Severity Reaction Status Date / Time Penicillins [PCN] Allergy Hives Verified 04/17/22 20:09 Family History Father Myocardial infarction Surgical History H/O tubal ligation History of tonsillectomy S/P colonoscopy (~10/06/18) Social History Smoking Status: Never smoker alcohol intake: never substance use type: does not use caffeine: Yes what type of physical activity do you participate in: walking do you feel safe at home: Yes additional social history: Malick ROS ROS ED ROS Narrative Chest pain with dyspnea. Episode of diaphoresis. Review of Systems ROS Unobtainable: Denies due to encephalopathy Constitutional Constitutional ED: Denies chills Eyes Eyes: Denies none ENT ENT ED: Denies ear pain Cardiovascular Cardiovascular: Reports as per HPI and chest pain; Denies palpitations or racing heartbeat Respiratory/Chest Respiratory/Chest: Reports dyspnea; Denies cough Gastrointestinal Gastrointestinal: Denies abdominal pain, constipation, diarrhea, melena, nausea or vomiting Genitourinary Genitourinary ED: Denies dysuria or hematuria Musculoskeletal Musculoskeletal: Denies arthralgias Integumentary Denies abscess Neurologic Neurologic: Denies headache(s) Psychiatric Psychiatric: Denies anxiety Endocrine Endocrinology: Denies cold intolerance Hematologic/Lymphatic Hematologic/Lymphatic: Denies easy bleeding EXAM Physical Exam Narrative Exam Narrative: 77-year-old female no acute distress. Vital signs stable afebrile. Pulse ox 96% on room air no signs hypoxia. H EENT exam atraumatic nontender. Face nontender. Pupils round reactive light. C-spine nontender. Trachea midline. Lungs clear to auscultation bilaterally. Heart regular rate and rhythm no murmur rate about 75. Chest wall reproducibly tender anteriorly. No crepitus or subcu air. Abdomen soft nontender. Pelvic girdle intact. Moving all 4 extremities. 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 Dorsi plantarflexion intact. Back no spine tenderness. Neurologically she is awake and alert. She is demented. But she is answering questions following commands. Moving all 4 extremities. Const Vital Signs: 04/17/22 20:04 Temperature 98.7 F Temperature Source Temporal Pulse Rate 76 Respiratory Rate 15 Blood Pressure 158/84 H Blood Pressure Mean 108 Pulse Ox 96 Oxygen Delivery Method Room Air Positive well nourished; Negative for obese, cachectic, contractures or unkempt General Appearance ED: Negative for unkempt, cachectic, contractures or pallor Nutritional Appearance: Negative for cachectic or obese HEENT Reports moist mucous membranes normocephalic and atraumatic; Negative for trauma or tenderness Eyes PERRL and EOMs intact bilaterally General Eye ED: Negative for pale conjunctiva or scleral icterus Neck no lymphadenopathy, supple and no JVD Chest Wall inspection of chest normal and palpation of chest normal Resp normal respiratory effort and clear to auscultation bilaterally Effort and Inspection: pain with movement; Negative for respiratory distress Cardio regular rate, regular rhythm, S1 normal heart sound and S2 normal heart sound GI normal to inspection, nondistended, normoactive bowel sounds, soft to palpation, non-tender, non-distended and no masses; Negative for hepatosplenomegaly Auscultation: Negative for hyperactive bowel sounds Palpation: Negative for splenomegaly or mass Back/Spine no CVA tenderness and no thoracic nor lumbar tenderness Extremity normal to inspection General Extremety ED: Negative for edema General Extremity: Negative for edema Neuro No oriented x3 Sensorium / Orientation: awake, alert, oriented to person, oriented to place and confused; Negative for oriented to time, lethargic or stuporous Motor Exam: strength 5/5 throughout Psych mental status grossly normal Appearance: Negative for unkempt Attitude: No agitated Mood & Affect: Negative for depressed or anxious Skin no rashes or lesions noted and no wounds General Skin Exam: Negative for jaundice or pallor Heart Score History: Moderately Suspicious ECG: Normal Age: >/= 65 years Risk Factors: 1 or 2 Risk Factors Troponin: </= Normal Limit Score: 4 MDM MDM MDM Narrative Medical decision making narrative: 77-year-old female history of dementia. Has chest pain that 2 weeks ago. Again today today's episode after she fell in the bathtub. There is a reproducible component on my concern is the chest pain more so that happened 2 weeks ago after walking. She undergo cardiac work-up. She will be given morphine for pain. Repeat exam patient is doing well at 10 PM. Discussed with her and family. I will discussed with the hospitalist admit the patient for chest pain of uncertain etiology for further testing such as a stress test. Lab Data Attestation: I reviewed the patient's lab results. Lab results narrative: CBC shows white count 6. H&H 13 and 41. Chemistries unremarkable. Gap of 4. BUN 21 creatinine 0.9. Glucose 156. Troponin 45. Labs: Laboratory Results - last 24 hr 04/17/22 04/17/22 20:25 20:25 WBC 6.5 RBC 4.36 Hgb 13.2 Hct 41.0 MCV 94.0 MCH 30.3 MCHC 32.2 RDW Std Deviation 44.6 H RDW Coeff of Laura 13.0 Plt Count 225 MPV 8.2 Immature Gran % (Auto) 0.300 Neut % (Auto) 73.3 H Lymph % (Auto) 17.0 L [place] % (Auto) 8.3 Eos % (Auto) 0.8 Baso % (Auto) 0.3 Absolute Neuts (auto) 4.8 Absolute Lymphs (auto) 1.11 Nucleated RBC % 0 Sodium 141 Potassium 3.4 L Chloride 109 H Carbon Dioxide 28.0 Anion Gap 4 L BUN 21 H Creatinine 0.97 Estim Creat Clear Calc 44.85 Est GFR (MDRD) Af Amer 72 Est GFR (MDRD) Non-Af 60 BUN/Creatinine Ratio 21.7 H Glucose 156 H Calcium 9.1 Troponin I High Sens 45 Radiography Chest X-Ray - ED: 1 View, Read by ED Physician, Heart, Lungs, Mediastinum, Bony Structures, No Acute Disease and Chronic Changes Diagnostic Testing: Clinical Impression(s) from Imaging Studies Chest X-Ray 04/17/22 20:41 IMPRESSION: Degenerative changes, as described above. No demonstrated acute cardiopulmonary process. Electronically Signed: Bassem Isaac DO at 20:54 EDT Reading Location ID and State: [address] [place] [address] Tel [phone], Service support , Chest x-ray, portable, single view interpreted myself shows no acute abnormality. Normal cardiac silhouette. Normal ribs. No pneumothorax. No fluid. Normal mediastinum. Rhythm Strip Rhythm Strip: Sinus Rhythm Rate: 78 Ectopy: None EKG Initial EKG: Attestation: I personally reviewed and interpreted this EKG as follows: Interpretation: Sinus Rhythm and No Acute Injury Pattern Comments: Normal sinus rhythm rate of 78 no acute signs of PR or ischemia. Discharge Plan Triage Chief Complaint: Chest Pain ED Provider: Claudio Vickers Dx/Rx/DC Orders Clinical Impression: Chest pain of uncertain etiology, History of dementia Prescriptions: No Action multivitamin tablet tablet 1 tab PO DAILY calcium carbonate [Calcium 500] 500 mg calcium (1,250 mg) tablet 500 mg PO DAILY Trimo-Carrillo Jelly 0.025-0.01 % gel See Rx Instructions vaginal .COMPLEX Qty: 113.4 3RF Rx Instructions: 1 application VAGINAL once a week; memantine 28 mg Capsule,Sprinkle,Er 24hr 28 mg PO DAILY Primary Care Provider: Care Physician,No Primary Referrals: Care Physician,No Primary [Primary Care Provider] - Disposition Disposition: Acute Care Hospital [facility]
[2022-04-17 21:02] LABS: Anion Gap 4 (5-15); BUN 21 mg/dL (7-18); BUN/Creat Ratio 21.7 RATIO (10-20); Calcium,Total 9.1 mg/dL (8.5-10.1); Chloride 109 mmol/L (98-107); Creatinine, Serum 0.97 mg/dL (0.55-1.02); EST Glomerular Filtration Rate 60 mL/min (>60); Est Glom Filt Rate - Afr Amer 72 mL/min (>60); Estimated Creatinine Clearance 44.85 ml/min; Glucose 156 mg/dL (74-106); Potassium 3.4 mmol/L (3.5-5.1); Sodium Level 141 mmol/L (136-145); Troponin-I HS (w/2H Reflex) 45 pg/mL (3.0-54.0)
[2022-04-17] MEDS: Morphine 4 MG/ML Syringe IV (21:16)
[2022-04-17] MEDS: Ondansetron 4 MG/2 ML Vial IV (21:16)
[2022-04-17 22:04] VITALS: BP 157/87; PULSE 69; RESP 16; TEMP 36.6; O2SAT 98
[2022-04-17 22:05] VITALS: BP 157/87
--- NOTE | 2022-04-17 22:13 | HP.PCM.HOS_ITS ---
HPI - General General Date of Admission: 04/17/22 Date of Service: 04/17/22 Chief Complaint: Chest pain HPI Narrative JEN LEGER, is a 77 F who presented to the emergency department [facility] on 04/17/2022 with chest pain. She evidently had her initial bout of chest pain 2 weeks ago while she was walking with family member at the store. At that time she had some shortness of breath and nausea with diaphoresis. Her symptoms resolved and then returned earlier today. It sounds like this episode happened after she had a fall in the bathtub and she had chest and back pain. With her fall she had no loss of consciousness. She has no cardiac history but does have a family history of cardiac issues in both of her parents. She has never had cardiac work-up previously. She has significant Alzheimer's type dementia at baseline and lives with her about 1/4 mile away from her daughter. Family also reports some intermittent lower extremity edema that is not present at this time and shortness of breath with exertion. Family reports her blood pressure has been elevated as of recently and they have been watching it. Vital signs on presentation showed a temperature of 98.7, pulse of 76, blood pressure of 158/84, respiratory rate of 15, oxygen saturation of 96% on room air. Her BMP shows mild hypokalemia with a potassium of 3.4 but is otherwise unremarkable. Blood glucose was 156 on presentation. High-sensitivity troponin was obtained and her initial troponin was 45. Her chest x-ray shows no acute cardiopulmonary processes. Her EKG is normal sinus rhythm with no ST-T wave changes consistent with acute ischemia. [facility] Medical History Alzheimer disease Compression fracture Compression fracture of body of thoracic vertebra Cystocele with rectocele Hemorrhoids History of compression fracture of vertebral column Urinary incontinence Home Medications multivitamin (Daily Multi-Vitamin) 1 tab PO DAILY 10/14/18 [History Last Taken Unknown] calcium carbonate 500 mg calcium (1,250 mg) tablet (Calcium 500) 500 mg PO DAILY 10/20/19 [History Last Taken Unknown] oxyquinoline 0.025 %-sodium lauryl sulfate 0.01 % vaginal gel (Trimo-Carrillo Jelly) See Rx Instructions vaginal .COMPLEX #113.4 grams 06/24/21 [Rx Last Taken Unknown] memantine 28 mg capsule sprinkle,extended release 24hr 28 mg PO DAILY 04/17/22 [History Last Taken Unknown] Allergy/AdvReac Type Severity Reaction Status Date / Time Penicillins [PCN] Allergy Hives Verified 04/17/22 20:09 Family History (Updated 04/17/22 @ 22:[address] Sivan Acuna DO) Father Myocardial infarction Mother Aortic aneurysm Surgical History H/O tubal ligation History of tonsillectomy S/P colonoscopy (~10/06/18) Social History Smoking Status: Never smoker alcohol intake: never substance use type: does not use caffeine: Yes what type of physical activity do you participate in: walking do you feel safe at home: Yes additional social history: Malick CHUN Constitutional Constitutional: Denies anorexia, change in weight, chills, fatigue, fever(s), malaise, night sweats, weakness or other Eyes Eyes: Denies blurry vision, change in eye color, change in vision, discharge from eye(s), double vision, erythema, eye pain, loss of vision or other ENT HEENT: Denies abnormal hearing, dysphagia, ear pain, epistaxis, headache(s), hearing loss, nasal congestion, nasal discharge, post nasal drip, sinus pressure, sore throat or other Cardiovascular Cardiovascular: Reports chest pain and edema; Denies claudication, dyspnea on ex ertion, lightheadedness, orthopnea, palpitations, paroxysmal nocturnal dyspnea, rapid heart rate, syncope or other Respiratory/Chest Respiratory/Chest: Reports shortness of breath with exertion; Denies cough, dyspnea, excessive phlegm production, hemoptysis, productive cough, shortness of breath at rest, wheezing or other Gastrointestinal Gastrointestinal: Denies abdominal pain, coffee ground emesis, constipation, diarrhea, dyspepsia, hematemesis, hematochezia, loose stools, melena, nausea, vomiting or other Genitourinary Genitourinary: Denies burning urination, difficulty urinating, dysuria, hematuria, nocturia, urinary frequency, urinary hesitancy, urinary incontinence, urinary urgency or other Musculoskeletal Musculoskeletal: Reports back pain and joint pain; Denies arthralgias, joint stiffness, joint swelling, myalgias, neck pain or other Neurologic Neurologic: Reports confusion; Denies abnormal gait, abnormal speech, disequilibrium, dizziness, focal weakness, headache(s), numbness, paresthesias, seizure-like activity, seizures, syncope, tingling, tremor(s) or other Psychiatric Psychiatric: Denies anxiety, depression, homicidal ideation, suicidal ideation or other Endocrine Endocrinology: Denies change in body appearance, cold intolerance, excessive sweating, heat intolerance, polydipsia, polyuria or other Hematologic/Lymphatic Hematologic/Lymphatic: Denies anemia, easy bleeding, easy bruising, lymphadenopathy or other Allergic/Immunologic Allergic/Immunologic: Denies rhinitis, hives, eczemia, asthma or other Vital Signs Vital Signs Vital Signs: 04/17/22 20:04 04/17/22 22:04 04/17/22 22:05 Temperature 98.7 F 97.9 F Temperature Source Temporal Temporal Pulse Rate 76 69 Respiratory Rate 15 16 Blood Pressure 158/84 H 157/87 H 157/87 H Blood Pressure Mean 108 110 110 Pulse Ox 96 98 Oxygen Delivery Method Room Air Room Air Weight Weight: 56.699 kg Body Mass Index (BMI) 25.2 Physical Exam Const alert Constitutional Narrative: Older white female sitting up in bed, family at bedside, patient is pleasantly confused and oriented to self and location only, nontoxic and appears comfortable at this time General Appearance: cooperative Orientation / Consciousness: confused HEENT normocephalic, head/scalp atraumatic, hearing grossly normal bilaterally and moist oral mucous membranes HEENT Narrative: Dentition is fair for age, Mallampati is 2, no thrush Mouth: oral and palatal mucosa normal Eyes PERRL, EOMs intact bilaterally and conjunctivae normal Eyes Narrative: No scleral icterus Neck no lymphadenopathy, supple, no JVD and no carotid bruits Resp normal respiratory effort, no retractions, no use of accessory muscles and clear to auscultation bilaterally Auscultation: Negative for crackles, rales, rhonchi or wheezes Cardio regular rate, regular rhythm, S1 normal heart sound, S2 normal heart sound, no murmurs, no rub, no gallops, no clicks and no JVD GI normal to inspection, nondistended, normoactive bowel sounds, soft to palpation, non-tender and non-distended; Negative for hepatosplenomegaly Extremity normal to inspection, full ROM and no clubbing, cyanosis or edema Skin no rashes or lesions noted, no wounds, skin turgor normal, no jaundice, no petechiae and no mottling Neuro CN's II-XII intact bilaterally, moves all extremities and no focal motor deficits Sensorium / Orientation: awake, alert, oriented to person and oriented to place Speech: speech normal Psych Psych Narrative: Very pleasantly confused Results Lab / Micro Data Attestation: I reviewed the patient's lab results. Result Diagrams: 04/17/22 20:25 04/17/22 20:25 Labs: Laboratory Results - last 24 hr 04/17/22 20:25: WBC 6.5, RBC 4.36, Hgb 13.2, Hct 41.0, MCV 94.0, MCH 30.3, MCHC 32.2, RDW Std Deviation 44.6 H, RDW Coeff of Laura 13.0, Plt Count 225, MPV 8.2, Immature Gran % (Auto) 0.300, Neut % (Auto) 73.3 H, Lymph % (Auto) 17.0 L, [place] % (Auto) 8.3, Eos % (Auto) 0.8, Baso % (Auto) 0.3, Absolute Neuts (auto) 4.8, Absolute Lymphs (auto) 1.11, Nucleated RBC % 0 04/17/22 20:25: Sodium 141, Potassium 3.4 L, Chloride 109 H, Carbon Dioxide 28.0, Anion Gap 4 L, BUN 21 H, Creatinine 0.97, Estim Creat Clear Calc 44.85, Est GFR (MDRD) Af Amer 72, Est GFR (MDRD) Non-Af 60, BUN/Creatinine Ratio 21.7 H , Glucose 156 H, Calcium 9.1, Troponin I High Sens 45 Rhythm Strip Rhythm Strip: Sinus Rhythm Rate: 78 Ectopy: None Radiology Impression Chest X-Ray 04/17/22 20:41 IMPRESSION: Degenerative changes, as described above. No demonstrated acute cardiopulmonary process. Electronically Signed: Bassem Isaac DO at 20:54 EDT Reading Location ID and State: [address] [place] [address] Tel [phone], Service support , Assessment & Plan Assessment/Plan (1) Chest pain of uncertain etiology: (2) Elevated blood pressure reading: (3) Hypokalemia: (4) Falls: PLAN: Plan Chest pain -With recent history will rule out cardiac nature of chest pain however I think current pain is musculoskeletal from fall -N.p.o. after midnight -Check stress test -Check lipids -Check hemoglobin A1c -Cycle cardiac enzymes--> initial troponin 45 -EKG shows normal sinus rhythm without any ST-T wave changes concerning for acut e ischemia -Start Coreg 6.125 twice daily -Start Lipitor 80 mg nightly -Start aspirin 81 mg daily--> patient was given full dose aspirin the emergency department prior to admission Hypokalemia -40 mill equivalents of p.o. potassium -Recheck lab in a.m. -Check a.m. magnesium level Elevated blood-pressure reading without documented history of hypertension -It appears that her blood pressure has been elevated previously -Suspect underlying hypertension -Start Coreg 6.25 and trend blood pressure -Patient may need up titration versus second agent depending on readings after Coreg initiated Falls -Consult PT/OT Hyperglycemia -Glucose on admission lab work was 156 -Check hemoglobin A1c in a.m. CKD stage II -Creatinine clearance is 60 -Serum creatinine is 0.97 -Monitor Alzheimer's type dementia -Continue home Namenda -Patient has pretty significant confusion at baseline -Was oriented to self and place only on presentation Osteoporosis with history of multiple thoracic compression fractures -Continue home calcium supplementation DVT prophylaxis -Lovenox 40 mg daily -SCDs CODE STATUS -Per discussion with her daughter who is Co. POA for healthcare with her brother in the emergency department her mother had indicated previously that she would never want to be on machines therefore her CODE STATUS was made DNR CCA without intubation Charges/Coding Visit Charges Inpatient E&M: 56487 Init Hosp L3
--- NOTE | 2022-04-17 22:40 | EKG12_ITS ---
Test Reason : CP Blood Pressure : / mmHG Vent. Rate : 070 BPM Atrial Rate : 070 BPM P-R Int : 148 ms QRS Dur : 090 ms QT Int : 402 ms P-R-T Axes : 064 -22 041 degrees QTc Int : 434 ms Normal sinus rhythm Nonspecific ST abnormality Abnormal ECG Confirmed by GIANLUCA SIDHU, PARDEEP ([id number]), dictionary editor LEANDRO GRIER ([id number]) on 04/18/2022 12:48:05 PM Referred By: ROBERT Confirmed By:PARDEEP HOUGH MD
[2022-04-17 22:41] LABS: Reflex Troponin-HS? (from REC) Y
[2022-04-17 22:43] VITALS: PULSE 69; BMI 22.9
[2022-04-17 23:00] VITALS: O2SAT 96
[2022-04-17] MEDS: Potassium Chloride Oral Tablet 20 MEQ 40 MEQ PO (23:06)
[2022-04-17 23:12] VITALS: BP 152/82; PULSE 79; RESP 20; TEMP 37.2; O2SAT 94
[2022-04-17 23:24] LABS: Troponin-I HS 48 pg/mL (3.0-54.0)
[2022-04-17 23:26] LABS: Hemoglobin A1c 5.4 % (3.8-5.6)
[2022-04-18] MEDS: Acetaminophen 325 MG Tablet 650 MG PO ×2 (00:41→12:15)
--- NOTE | 2022-04-18 00:47 | NURSING ---
phone call placed to pt daughter Alyse Cruz regarding pt mentation. Message left to please return call to this RN.
--- NOTE | 2022-04-18 01:06 | NURSING ---
Phone call received from Alyse Cruz daughter was present in ED with pt. Daughter reassures this nurse pt with advanced stage dementia with marked confusion and aphagia at baseline.
[2022-04-18 02:56] LABS: Troponin-I HS 67 pg/mL (3.0-54.0)
[2022-04-18 03:34] VITALS: PULSE 60
[2022-04-18 05:00] LABS: Absolute Lymphocyte Count 1.19 X10^3/uL (0.83-4.51); Absolute Neutrophil Count 4.2 X10^3/uL (2.0-7.7); Basophil# 0.02 X10^3/uL; Basophil% 0.3 % (0-1); Eosinophil# 0.09 X10^3/uL; Eosinophils% 1.5 % (0-5); Hemoglobin 12.4 g/dL (12.0-15.0); Lymphocyte # 1.19 X10^3/ul (0.83-4.51); Lymphocyte % 19.5 % (19-41); Mean Corp Hgb Conc 32.6 g/dL (32-36); Mean Corpuscular Hgb 30.1 pg (27.0-32.0); Mean Corpuscular Volume 92.2 fL (81-99); Mean Platelet Vol. 8.5 fl (6.2-12.0); Monocyte# 0.55 X10^3/uL; NRBC Flagged by Analyzer 0 % (0-5); Neutrophil # 4.24 X10^3/uL (2.7-7.7); Neutrophil % 69.5 % (47-70); Platelet Count 182 K/mm3 (150-450); RBC Distribution Width SD 44.4 fl (35.1-43.9); Red Blood Count 4.12 M/mm3 (4.2-5.4); White Blood Count 6.1 K/mm3 (4.4-11.0)
[2022-04-18 05:10] VITALS: BP 148/74; PULSE 62; RESP 20; TEMP 36.4; O2SAT 97
[2022-04-18 05:31] LABS: Anion Gap 5 (5-15); BUN 15 mg/dL (7-18); BUN/Creat Ratio 21.2 RATIO (10-20); Calcium,Total 8.4 mg/dL (8.5-10.1); Chloride 109 mmol/L (98-107); Cholesterol 222 mg/dL (200); Creatinine, Serum 0.71 mg/dL (0.55-1.02); EST Glomerular Filtration Rate 85 mL/min (>60); Est Glom Filt Rate - Afr Amer 103 mL/min (>60); Glucose 101 mg/dL (74-106); High Density Lipoprotein 63 mg/dL; Potassium 3.9 mmol/L (3.5-5.1); Sodium Level 141 mmol/L (136-145); Triglycerides 73 mg/dL; Very Low Density Lipoprotein 15 mg/dL (5-40)
[2022-04-18] MEDS: Aspirin E.C. 81 MG Tablet PO (05:39)
[2022-04-18 06:24] LABS: Phosphorus 2.4 mg/dL (2.5-4.9)
[2022-04-18 06:35] VITALS: PULSE 58
[2022-04-18 07:17] VITALS: O2SAT 95
[2022-04-18 10:19] VITALS: BP 148/82; PULSE 72; RESP 18; TEMP 36.1; O2SAT 96
[2022-04-18] MEDS: Multivitamins,Therapeutic Tablet 1 TABLET PO (10:21)
[2022-04-18] MEDS: Carvedilol 6.25 MG Tablet PO (10:21)
[2022-04-18] MEDS: Memantine Hydrochloride 10 MG Tablet PO (10:21)
[2022-04-18] MEDS: Calcium (Elemental) 500 MG Tablet PO (10:21)
--- NOTE | 2022-04-18 11:43 | EKG12_ITS ---
Test Reason : Blood Pressure : / mmHG Vent. Rate : 067 BPM Atrial Rate : 067 BPM P-R Int : 136 ms QRS Dur : 092 ms QT Int : 432 ms P-R-T Axes : 038 -30 014 degrees QTc Int : 456 ms Normal sinus rhythm Left axis deviation Abnormal ECG When compared with ECG of 17-APR-2022 23:03, MANUAL COMPARISON REQUIRED, DATA IS UNCONFIRMED Confirmed by DEBBIE SIDHU, DRISS ([id number]), deputy editor in chief LEANDRO GRIER ([id number]) on 04/22/2022 8:49:37 AM Referred By: ROBERT Confirmed By:DRISS LEWIS MD
--- NOTE | 2022-04-18 12:27 | PN.HOSP_ITS ---
Subjective Subjective Patient seen and examined. Patient sitting in chair no distress noted. Patient confused and attempting to take off heart monitor. Reoriented patient and explained to her the importance of keeping her heart monitor on at this time. Objective Data Objective Data Vital Signs: Vital Signs Temp Pulse Resp BP Pulse Ox 97.0 F L 72 18 148/82 H 96 04/18/22 10:19 04/18/22 10:19 04/18/22 10:19 04/18/22 10:19 04/18/22 10:19 Oxygen Delivery Method Room Air Weight: 142 lb 6.698 oz Body Mass Index (BMI) 22.9 Intake & Output: Intake and Output for Last 24 Hours 04/16/22 04/17/22 04/18/22 23:59 23:59 23:59 Intake Total 60 / 60 0 / 0 Output Total 0 / 0 Balance 60 / 60 0 / 0 Lab / Micro Data Result Diagrams: 04/18/22 04:20 04/18/22 04:20 Labs: Laboratory Results - last 24 hr 04/17/22 20:25: WBC 6.5, RBC 4.36, Hgb 13.2, Hct 41.0, MCV 94.0, MCH 30.3, MCHC 32.2, RDW Std Deviation 44.6 H, RDW Coeff of Laura 13.0, Plt Count 225, MPV 8.2, Immature Gran % (Auto) 0.300, Neut % (Auto) 73.3 H, Lymph % (Auto) 17.0 L, [place] % (Auto) 8.3, Eos % (Auto) 0.8, Baso % (Auto) 0.3, Absolute Neuts (auto) 4.8, Absolute Lymphs (auto) 1.11, Nucleated RBC % 0 04/17/22 20:25: Sodium 141, Potassium 3.4 L, Chloride 109 H, Carbon Dioxide 28.0, Anion Gap 4 L, BUN 21 H, Creatinine 0.97, Estim Creat Clear Calc 44.85, Est GFR (MDRD) Af Amer 72, Est GFR (MDRD) Non-Af 60, BUN/Creatinine Ratio 21.7 H , Glucose 156 H, Calcium 9.1, Troponin I High Sens 45 04/17/22 20:25: Hemoglobin A1c 5.4 04/17/22 22:55: Troponin I High Sens 48 04/18/22 02:30: Troponin I High Sens 67 H 04/18/22 04:20: WBC 6.1, RBC 4.12 L, Hgb 12.4, Hct 38.0, MCV 92.2, MCH 30.1, MCHC 32.6, RDW Std Deviation 44.4 H, RDW Coeff of Laura 13.0, Plt Count 182, MPV 8.5, Immature Gran % (Auto) 0.200, Neut % (Auto) 69.5, Lymph % (Auto) 19.5, [place] % (Auto) 9.0, Eos % (Auto) 1.5, Baso % (Auto) 0.3, Absolute Neuts (auto) 4.2, Absolute Lymphs (auto) 1.19, Nucleated RBC % 0 04/18/22 04:20: Sodium 141, Potassium 3.9, Chloride 109 H, Carbon Dioxide 27.0, Anion Gap 5, BUN 15, Creatinine 0.71, Estim Creat Clear Calc 45.50, Est GFR (MDRD) Af Amer 103, Est GFR (MDRD) Non-Af 85, BUN/Creatinine Ratio 21.2 H, Glucose 101, Calcium 8.4 L, Magnesium 2.0, Triglycerides 73, Cholesterol 222 H, LDL Cholesterol 144 H, VLDL Cholesterol 15, HDL Cholesterol 63 04/18/22 04:20: Phosphorus 2.4 L Radiography Diagnostic Testing: Radiology Impression Chest X-Ray 04/17/22 20:41 IMPRESSION: Degenerative changes, as described above. No demonstrated acute cardiopulmonary process. Electronically Signed: Bassem Isaac DO at 20:54 EDT Reading Location ID and State: [address] [place] [address] Tel [phone], Service support , Rhythm Strip Rhythm Strip: Sinus Rhythm Rate: 78 Ectopy: None Physical Exam Const alert General Appearance: cooperative Orientation / Consciousness: confused HEENT normocephalic, head/scalp atraumatic and moist oral mucous membranes Mouth: oral and palatal mucosa normal Eyes conjunctivae normal Neck no lymphadenopathy, supple, no JVD and no carotid bruits Resp normal respiratory effort, no use of accessory muscles and clear to auscultation bilaterally Cardio regular rate, regular rhythm, S1 normal heart sound and S2 normal heart sound GI normal to inspection, nondistended, normoactive bowel sounds, soft to palpation and non-tender; Negative for hepatosplenomegaly Extremity normal to inspection, full ROM and no clubbing, cyanosis or edema Skin no rashes or lesions noted, no wounds, skin turgor normal, no jaundice, no petechiae and no mottling Neuro moves all extremities and no focal motor deficits Sensorium / Orientation: awake, alert, oriented to person and oriented to place Speech: speech normal Psych Psych Narrative: Very pleasantly confused Assessment & Plan Assessment/Plan (1) Falls: (2) Chest pain of uncertain etiology: (3) Hypokalemia: PLAN: Plan 1. Chest pain of unknown etiology -Stress test completed awaiting results -Due to the fact that the chest pain is reproducible and there were no EKG changes likely secondary to fall at home 2. Hypokalemia -Resolved, potassium 3.9 3. Hypertension -Continue Coreg 4. Hyperlipidemia -Cholesterol 222, LDL 144 -Continue atorvastatin 5. Alzheimer's type dementia -Continue Namenda -Patient alert and oriented to self and place DVT prophylaxis-Lovenox and SCDs This patient was seen by Cherise Guzman, DARRIN-C under the supervision of Dr. Epstein. 14 minutes spent in clinical coordination of patient's plan of care.
--- NOTE | 2022-04-18 13:39 | DCINST_ITS ---
Discharge Instructions Diet Discharge Diet: Low fat / Low cholesterol Activity Discharge Activity: Return to Normal Activity Dressing / Incision Call your doctor if you observe: Swelling in the ankles, Chest pain and Increased palpitations (irregular heartbeat) Follow Up Care Please Follow Up With: Primary Care Physician When: 1-2 weeks Test Results: Test results from this visit will be discussed in further detail at your follow- up appointment, if applicable. Discharge Plan Admission Admit Date/Time: 04/17/22 22:05 Primary Reason for Your Visit: Chest Pain Attending Provider: Gaurav Epstein Primary Care Provider: Care ,No Primary Consulting Providers: Sivan Acuna Discharge Orders/Prescriptions Prescriptions: New atorvastatin 80 mg Tablet 80 mg PO QHS 30 Days Qty: 30 0RF carvedilol 6.25 mg Tablet 6.25 mg PO BID 30 Days Qty: 60 0RF aspirin 81 mg Tablet,Delayed Release (Dr/Ec) 81 mg PO BREAKFAST Qty: 0 0RF Continued multivitamin tablet tablet 1 tab PO DAILY calcium carbonate [Calcium 500] 500 mg calcium (1,250 mg) tablet 500 mg PO DAILY Trimo-Carrillo Jelly 0.025-0.01 % gel See Rx Instructions vaginal .COMPLEX Qty: 113.4 3RF Rx Instructions: 1 application VAGINAL once a week; memantine 28 mg Capsule,Sprinkle,Er 24hr 28 mg PO DAILY Referrals / Follow Up: Care Physician,No Primary [Primary Care Provider] - Disposition Disposition (needs filled in before D/C Order can be placed): Home, Self Care
--- NOTE | 2022-04-18 13:50 | PCM.DC.SUM ---
Documented by User: KELI Isaacs 04/18/22 13:53 Providers Date of Admission: 04/17/22 Date of Discharge: 04/18/22 Primary Care Physician: No Primary Care Phys Reason For Visit: chest pain Diagnosis Discharge Diagnosis (1) Falls: Status: Acute Code(s): W19.XXXA - Unspecified fall, initial encounter (2) Chest pain of uncertain etiology: Status: Acute Code(s): R07.9 - Chest pain, unspecified (3) Hypokalemia: Status: Acute Code(s): E87.6 - Hypokalemia Medications at Discharge Home Medications multivitamin (Daily Multi-Vitamin) 1 tab PO DAILY 10/14/18 calcium carbonate 500 mg calcium (1,250 mg) tablet (Calcium 500) 500 mg PO DAILY 10/20/19 oxyquinoline 0.025 %-sodium lauryl sulfate 0.01 % vaginal gel (Trimo-Carrillo Jelly) See Rx Instructions vaginal .COMPLEX #113.4 grams 06/24/21 memantine 28 mg capsule sprinkle,extended release 24hr 28 mg PO DAILY 04/17/22 aspirin 81 mg tablet,delayed release 81 mg PO BREAKFAST #0 tabs 04/18/22 atorvastatin 80 mg tablet 80 mg PO QHS 30 days #30 tabs 04/18/22 carvedilol 6.25 mg tablet 6.25 mg PO BID 30 days #60 tabs 04/18/22 Hospital Course Operations None Procedures Stress test Summary of Care Provided Minutes Spent on Discharge: 35 Physical Exam Const alert General Appearance: cooperative Orientation / Consciousness: confused HEENT normocephalic, head/scalp atraumatic and moist oral mucous membranes Eyes conjunctivae normal Neck no lymphadenopathy and supple Resp normal respiratory effort, no use of accessory muscles and clear to auscultation bilaterally Cardio regular rate, regular rhythm, S1 normal heart sound and S2 normal heart sound GI normal to inspection, nondistended, normoactive bowel sounds, soft to palpation and non-tender Extremity normal to inspection, full ROM and no clubbing, cyanosis or edema Skin no rashes or lesions noted, no wounds, skin turgor normal, no jaundice, no petechiae and no mottling Neuro moves all extremities and no focal motor deficits Sensorium / Orientation: awake, alert, oriented to person and oriented to place Speech: speech normal Psych Psych Narrative: Very pleasantly confused Weight / BMI Weight Weight: 142 lb 6.698 oz Body Mass Index (BMI) 22.9 ABG / Lab / Microbiology Data Result Diagrams: 04/18/22 04:20 04/18/22 04:20 Laboratory: Laboratory Results - last 24 hr 04/17/22 20:25: WBC 6.5, RBC 4.36, Hgb 13.2, Hct 41.0, MCV 94.0, MCH 30.3, MCHC 32.2, RDW Std Deviation 44.6 H, RDW Coeff of Laura 13.0, Plt Count 225, MPV 8.2, Immature Gran % (Auto) 0.300, Neut % (Auto) 73.3 H, Lymph % (Auto) 17.0 L, [place] % (Auto) 8.3, Eos % (Auto) 0.8, Baso % (Auto) 0.3, Absolute Neuts (auto) 4.8, Absolute Lymphs (auto) 1.11, Nucleated RBC % 0 04/17/22 20:25: Sodium 141, Potassium 3.4 L, Chloride 109 H, Carbon Dioxide 28.0, Anion Gap 4 L, BUN 21 H, Creatinine 0.97, Estim Creat Clear Calc 44.85, Est GFR (MDRD) Af Amer 72, Est GFR (MDRD) Non-Af 60, BUN/Creatinine Ratio 21.7 H, Glucose 156 H, Calcium 9.1, Troponin I High Sens 45 04/17/22 20:25: Hemoglobin A1c 5.4 04/17/22 22:55: Troponin I High Sens 48 04/18/22 02:30: Troponin I High Sens 67 H 04/18/22 04:20: WBC 6.1, RBC 4.12 L, Hgb 12.4, Hct 38.0, MCV 92.2, MCH 30.1, MCHC 32.6, RDW Std Deviation 44.4 H, RDW Coeff of Laura 13.0, Plt Count 182, MPV 8.5, Immature Gran % (Auto) 0.200, Neut % (Auto) 69.5, Lymph % (Auto) 19.5, [place] % (Auto) 9.0, Eos % (Auto) 1.5, Baso % (Auto) 0.3, Absolute Neuts (auto) 4.2, Absolute Lymphs (auto) 1.19, Nucleated RBC % 0 04/18/22 04:20: Sodium 141, Potassium 3.9, Chloride 109 H, Carbon Dioxide 27.0, Anion Gap 5, BUN 15, Creatinine 0.71, Estim Creat Clear Calc 45.50, Est GFR (MDRD) Af Amer 103, Est GFR (MDRD) Non-Af 85, BUN/Creatinine Ratio 21.2 H, Glucose 101, Calcium 8.4 L, Magnesium 2.0, Triglycerides 73, Cholesterol 222 H, LDL Cholesterol 144 H, VLDL Cholesterol 15, HDL Cholesterol 63 04/18/22 04:20: Phosphorus 2.4 L Radiography Diagnostic Testing: Radiology Impression Chest X-Ray 04/17/22 20:41 IMPRESSION: Degenerative changes, as described above. No demonstrated acute cardiopulmonary process. Electronically Signed: Bassem Isaac DO at 20:54 EDT Reading Location ID and State: [address] [place] [address] Tel [phone], Service support , D/C Instructions Discharge Diet: Low fat / Low cholesterol Call your doctor if you observe: Swelling in the ankles, Chest pain and Increased palpitations (irregular heartbeat) Please Follow Up With: Primary Care Physician When: 1-2 weeks Meaningful Use Info Meaningful Use Diagnoses (Choose all that apply): None applicable Discharge Plan Admission Admit Date/Time: 04/17/22 22:05 Primary Reason for Your Visit: Chest Pain Attending Provider: Gaurav Epstein Primary Care Provider: Care Physician,No Primary Consulting Providers: Sivan Acuna Discharge Orders/Prescriptions Prescriptions: New atorvastatin 80 mg Tablet 80 mg PO QHS 30 Days Qty: 30 0RF carvedilol 6.25 mg Tablet 6.25 mg PO BID 30 Days Qty: 60 0RF aspirin 81 mg Tablet,Delayed Release (Dr/Ec) 81 mg PO BREAKFAST Qty: 0 0RF Continued multivitamin tablet tablet 1 tab PO DAILY calcium carbonate [Calcium 500] 500 mg calcium (1,250 mg) tablet 500 mg PO DAILY Trimo-Carrillo Jelly 0.025-0.01 % gel See Rx Instructions vaginal .COMPLEX Qty: 113.4 3RF Rx Instructions: 1 application VAGINAL once a week; memantine 28 mg Capsule,Sprinkle,Er 24hr 28 mg PO DAILY Referrals / Follow Up: Care Physician,No Primary [Primary Care Provider] - Disposition Disposition (needs filled in before D/C Order can be placed): Home, Self Care Documented by User: Dr. Gaurav Epstein MD 04/18/22 16:25 Providers Date of Admission: 04/17/22 Reason For Visit: chest pain Diagnosis Discharge Diagnosis (1) Falls: Status: Acute Code(s): W19.XXXA - Unspecified fall, initial encounter (2) Chest pain of uncertain etiology: Status: Acute Code(s): R07.9 - Chest pain, unspecified (3) Hypokalemia: Status: Acute Code(s): E87.6 - Hypokalemia Medications at Discharge Home Medications multivitamin (Daily Multi-Vitamin) 1 tab PO DAILY 10/14/18 calcium carbonate 500 mg calcium (1,250 mg) tablet (Calcium 500) 500 mg PO DAILY 10/20/19 oxyquinoline 0.025 %-sodium lauryl sulfate 0.01 % vaginal gel (Trimo-Carrillo Jelly) See Rx Instructions vaginal .COMPLEX #113.4 grams 06/24/21 memantine 28 mg capsule sprinkle,extended release 24hr 28 mg PO DAILY 04/17/22 aspirin 81 mg tablet,delayed release 81 mg PO BREAKFAST #0 tabs 04/18/22 atorvastatin 80 mg tablet 80 mg PO QHS 30 days #30 tabs 04/18/22 carvedilol 6.25 mg tablet 6.25 mg PO BID 30 days #60 tabs 04/18/22 ABG / Lab / Microbiology Data Result Diagrams: 04/18/22 04:20 04/18/22 04:20 Discharge Plan Admission Admit Date/Time: 04/17/22 22:05 Primary Reason for Your Visit: Chest Pain Attending Provider: Gaurav Epstein Primary Care Provider: Care Physician,No Primary Consulting Providers: Sivan Acuna Discharge Orders/Prescriptions Prescriptions: New atorvastatin 80 mg Tablet 80 mg PO QHS 30 Days Qty: 30 0RF carvedilol 6.25 mg Tablet 6.25 mg PO BID 30 Days Qty: 60 0RF aspirin 81 mg Tablet,Delayed Release (Dr/Ec) 81 mg PO BREAKFAST Qty: 0 0RF Continued multivitamin tablet tablet 1 tab PO DAILY calcium carbonate [Calcium 500] 500 mg calcium (1,250 mg) tablet 500 mg PO DAILY Trimo-Carrillo Jelly 0.025-0.01 % gel See Rx Instructions vaginal .COMPLEX Qty: 113.4 3RF Rx Instructions: 1 application VAGINAL once a week; memantine 28 mg Capsule,Sprinkle,Er 24hr 28 mg PO DAILY Referrals / Follow Up: Care Physician,No Primary [Primary Care Provider] - Disposition Disposition (needs filled in before D/C Order can be placed): Home, Self Care Charges/Coding Addendum Addendum: Addendum: Dr. Epstein I personally examined the patient and reviewed the chart. I agree with the above. 77-year-old female with dementia presented to the hospital with chest pain. Overnight she was started on aspirin, Lipitor, Coreg given her elevated blood pressures. Her troponins did rise to a peak of 67 however she did proceed with a stress test today which was negative for any type of ischemic event. She was having some discomfort on palpation and she does have some bruising on her chest secondary to her fall. I discussed with the daughter who is at bedside today the possibility for discharge, she expressed understanding of all the risks and benefits of going home and is okay with taking her mother home. I do recommend that she follow-up with her PCP as an outpatient to monitor the new medications at were started. If she has any further chest pain I did recommend coming back to the hospital for further evaluation. Clinical time spent in all aspects of patient care: 40 minutes Visit Charges OBSV E&M: 32527 Observation care discharge
--- NOTE | 2022-04-18 16:04 | STRESSREP ---
Stress Test Report Pharmacologic myocardial perfusion stress test. 77-year-old lady with a history of chest pain. Stress protocol: Resting EKG demonstrates normal sinus rhythm with a rate of 70 bpm normal intervals are noted resting blood pressure is 162/88 mmHg. 0.4 mg of regadenoson was infused per usual protocol followed by rapid intravenous saline flush injection continuous EKG monitoring was performed. At rest there were no ST or T wave changes noted to suggest abnormal flow reserve and at peak infusion nonspecific ST changes were noted with did not meet the criteria for ischemia. No clinical angina was noted. The resting blood pressure was 162/88 mmHg with a final blood pressure of 130/78 mmHg. Myocardial perfusion protocol. 11.0 mCi of technetium 99m sestamibi was injected at rest. 0.4 mg of regadenoson was infused per usual protocol. At peak infusion 33.8 mCi of technetium 99m sestamibi was injected stress images were obtained stress and rest images were reconstructed and compared in the short axis vertical long and horizontal long axis. Gated images were also obtained. Perfusion SPECT analysis: Review of the stress images demonstrate normal uptake of tracer noted in all areas of the myocardium. The resting images similar demonstrate normal uptake of tracer noted in all areas of the myocardium. No areas of reversibility are noted suggest ischemia and no previous infarct is noted. Gated SPECT analysis: The gated ejection fraction is 76%. Conclusion: Normal pharmacologic myocardial perfusion stress test
== END 2022-04-18 13:49 | disposition home or self-care (01) ==
LOC: ED 22:03 → PCU 22:26
PROVIDERS: Admitting Provider Internal Medicine; Emergency Provider Emergency Medicine; Visit Provider Family Medicine
DX: R07.89 Other chest pain (principal); G30.9 Alzheimer's disease, unspecified; F02.80 Dementia in other diseases classified elsewhere, unspecified severity, without behavioral disturbance, psychotic disturbance, mood disturbance, and anxiety; R03.0 Elevated blood-pressure reading, without diagnosis of hypertension; E87.6 Hypokalemia; R11.0 Nausea; S20.20XA Contusion of thorax, unspecified, initial encounter; R06.02 Shortness of breath; M54.9 Dorsalgia, unspecified; Z79.899 Other long term (current) drug therapy; W18.2XXA Fall in (into) shower or empty bathtub, initial encounter; Y93.9 Activity, unspecified; Y99.9 Unspecified external cause status; Y92.9 Unspecified place or not applicable; R60.0 Localized edema; R32 Unspecified urinary incontinence; R73.9 Hyperglycemia, unspecified; M81.0 Age-related osteoporosis without current pathological fracture
CPT/HCPCS: 36415; 71045; 78452; 80048; 80061; 83036; 83735; 84100; 84484; 85025; 93005; 93017; 96374; 96375; 97161; 99218; 99284; A9500; A4216; G0378; J2405; J2785